=== PATIENT | female | born 1935 | race Caucasian/White ===

== ENCOUNTER → 2018-03-30 | Outpatient (CLI) | payer MEDICARE, OTHER ==
[~2018-03-30] MED LIST: BENTYL10 MG PO; BIOTIN1 MG PO; CLARITIN-D 241 EACH PO; GABAPENTIN100 MG PO; LEVOTHYROXINE50 MCG PO; METOPROLOL TART50 MG PO; NASOCORT; PROBIOTIC & AC1 EACH PO; SIMVASTATIN40 MG PO; SINGULAR; SYMBICORT; Z.0.AMLODIPINE BESYL PO; Z.0.HYZAAR 100-251 E PO; Z.0.METOPROLOL SUC10 PO; Z.0.PROTONIX20 MG PO; Z.0.TRICOR145 MG PO
--- NOTE | 2018-03-30 18:59 | Diagnostic Imaging Report ---
PROCEDURE: CT CHEST WITHOUT CONTRAST CT scan of the chest WITHOUT intravenous contrast, using standard protocol. TECHNIQUE: The chest was scanned utilizing a multidetector helical scanner from the apex to the level of the adrenal glands. No IV contrast was administered per physician's request. Coronal and sagittal multiplanar reformations were obtained. COMPARISON: Patients [facility], CT, CT CHEST , 08/15/2017, 12:42. INDICATIONS: SHORTNESS OF BREATH FINDINGS: Lines/tubes: None. Lungs and Airways: Stable mild subpleural reticulation and linear scarring in the lateral right middle lobe, lateral, right lower lobe and lingula. Stable linear opacities in the lingula and anterior left lower lobe extending to the pleural surface (series 3, image 73 and 65), consistent with scarring. No pulmonary nodules, masses, or consolidation. Airways are clear, without endobronchial lesions. Pleura: No effusion, or pneumothorax. Heart and mediastinum: Stable 1.0 cm hypodense lesion in the left thyroid lobe (series 2 image 14). Heart size is normal. No pericardial effusion. Atherosclerotic calcification of the aortic valve, coronary arteries, thoracic aorta and mitral annulus. Aorta is non-aneurysmal. The main pulmonary artery is normal in caliber, measuring 2.9 cm. Lymph nodes: Slight interval increase in size in mildly enlarged right lower paratracheal lymph node (series 2, image 39), which measures 1.4 cm in short axis and contains a normal fatty hilum. Stable calcified right lower paratracheal and subcarinal lymph nodes (series 2, images 36 and 47). No other mediastinal or any hilar or axillary adenopathy.. Abdomen: Limited views of the upper abdomen show no abnormality within the visualized spleen, pancreas, or kidneys. The adrenal glands are normal. 8mm fluid density hypodense lesion in hepatic segment V, consistent with a simple cyst (series 2, image 104). Large hiatal hernia, containing a portion of the stomach fundus. Bones: No aggressive lytic lesions. Multilevel degenerative disc changes in the thoracic spine. Old compression deformity of T8, which is stable. Generalized osteopenia. Midline sternotomy wires. Soft tissues are grossly unremarkable. IMPRESSION: 1. stable findings in bilateral lower lobes, consistent with mild subpleural fibrotic changes. 2. Stable linear scarring in the lingula and anterior right lower lobe. No consolidation, masses, or pulmonary nodules. 3. Stable 1.0 cm nodule in the left thyroid lobe. This may be further evaluated with dedicated thyroid ultrasound. 4. Slight interval increase in size of mildly enlarged right lower paratracheal lymph node, which is likely reactive, given the normal fatty hilum and lack of other adenopathy. Calcified mediastinal nodes are again seen, consistent with prior granulomatous disease. 7. Large hiatal hernia. Yousif Hernandez M.D. Dictated by: Yousif Hernandez M.D. on 03/30/2018 at 19:01 Electronically approved by: Yousif Hernandez M.D. on 03/30/2018 at 19:01
== END ==
LOC: CT 08:33
PROVIDERS: ATTEND Internal Medicine Pulmonary Disease
DX: R06.09 Other forms of dyspnea (principal)
CPT/HCPCS: 71250

== ENCOUNTER → 2018-04-06 | Outpatient (CLI) | payer MEDICARE, OTHER ==
[~2018-04-06] MED LIST changes: +ALBUTEROL/IPRATROPIUM 3 ML NEB ONE
--- NOTE | 2018-04-07 17:39 | Pulmonary Function Test ---
DATE OF STUDY: April 06, 2018 PATIENT OF: 1. Dr. Robertson. 2. Dr. Amanda. SPIROMETRY: Forced vital capacity 1.97 liters, 97% of predicted. FEV1 of 1.18 liters, 81% of predicted. FEV1-FVC ratio 61%. [id number] of 58% suggesting mild obstructive pulmonary disease. There is no significant improvement following inhalation of bronchodilators. Diffusion capacity is reduced at 7.35 suggesting loss of alveolar units or ventilation perfusion imbalance. Total lung capacity is preserved at 4.36, 107% of predicted. Findings consistent with mild obstructive pulmonary disease. Job#: [id number] PINEDA
== END ==
LOC: RESP 14:57
PROVIDERS: ATTEND Internal Medicine Pulmonary Disease
DX: R06.09 Other forms of dyspnea (principal); R06.02 Shortness of breath

== ENCOUNTER 2018-07-31 12:37 | Emergency (ER) | payer MEDICARE, OTHER ==
[~2018-07-31] VITALS: Ht 157.5 cm; Wt 76.7 kg
[~2018-07-31 12:37] MED LIST changes: -ALBUTEROL/IPRATROPIUM 3 ML NEB ONE
[2018-07-31 13:33] LABS: BASOPHILS % 0.7 % (0.0-1.0); EOSINOPHILS # (AUTO) 0.1 (0.0-0.4); EOSINOPHILS % 1.6 % (0.0-6.0); HEMATOCRIT 41.8 % (34.2-44.1); HEMOGLOBIN 14.1 g/dL (12.0-16.0); LYMPHOCYTES # (AUTO) 0.9 (1.0-3.2); LYMPHOCYTES % 19.8 % (18.0-39.1); MEAN CORPUSCULAR HEMOGLOBIN 31.1 pg (28-32); MEAN CORPUSCULAR HGB CONC 33.7 g/dL (31-35); MEAN CORPUSCULAR VOLUME 92.3 fL (81-99); MONOCYTES % 23.5 % (4.4-11.3); NEUTROPHILS # (AUTO) 2.3 (2.1-6.9); NEUTROPHILS % 54.2 % (38.7-80.0); PLATELET COUNT 346 x10e3/uL (140-360); RED BLOOD COUNT 4.53 x10e6/uL (3.6-5.1); RED CELL DISTRIBUTION WIDTH 13.6 % (11.7-14.4)
[2018-07-31 13:38] LABS: INR 1.09; PARTIAL THROMBOPLASTIN TIME 24.6 seconds (23.8-35.5); PROTHROMBIN TIME 13.3 seconds (11.9-14.5)
[2018-07-31 13:46] LABS: ALBUMIN/GLOBULIN RATIO 1.2 (0.8-2.0); ANION GAP 17.9 mmol/L (8-16); CALCIUM 9.7 mg/dL (8.4-10.2); CREATININE, SERUM 0.94 mg/dL (0.57-1.11); MAGNESIUM 1.6 MG/DL (1.3-2.1); POTASSIUM 3.9 mmol/L (3.5-5.1)
[2018-07-31 13:53] LABS: CREATINE KINASE MB 0.3 ng/mL (0-5.0)
--- NOTE | 2018-07-31 14:37 | Diagnostic Imaging Report ---
A single frontal view of the chest. HISTORY: Weak, rectal bleeding, history of GI bleed COMPARISON: Images from CT of the chest dated March 30, 2018. DISCUSSION: Portable technique, limits sensitivity of the exam. Soft tissue attenuation partially limits sensitivity of the exam. Tubes/Lines: Overlying monitoring leads. Lungs and pleura: Hyperinflated mid to upper lungs, results in bibasilar vascular crowding. No evidence of a consolidative pneumonia or pulmonary alveolar edema. No definite pleural effusion or pneumothorax is identified. Heart and mediastinum: The cardiomediastinal silhouette appears unremarkable. Tortuosity of the thoracic aorta. Bones: Multiple median sternotomy wires. IMPRESSION: 1. Hyperinflated lungs, compatible with obstructive lung disease. 2. No consolidative pneumonia or pulmonary edema. Signed by: Dr. Jose J Cifuentes D.O., M.M.M. on 07/31/2018 2:33 PM
[2018-07-31 15:43] LABS: BILIRUBIN,URINE NEGATIVE (NEGATIVE); CLARITY,URINE CLEAR (CLEAR); COLOR,URINE YELLOW (YELLOW); KETONES,URINE NEGATIVE (NEGATIVE); LEUKOCYTE ESTERASE ,URINE NEGATIVE (NEGATIVE); NITRITE,URINE NEGATIVE (NEGATIVE); PROTEIN,URINE DIPSTICK NEGATIVE (NEGATIVE); URINE UROBILINOGEN 0.2 mg/dL (0.2 - 1)
[2018-07-31 15:49] LABS: EPITHELIAL CELLS,URINE RARE /LPF
== END 2018-07-31 18:25 | disposition home or self-care (01) ==
LOC: ER 12:37
DX: R53.1 Weakness (principal); R11.2 Nausea with vomiting, unspecified; R19.7 Diarrhea, unspecified
CPT/HCPCS: 36415; 71045; 80053; 81001; 82150; 82550; 82553; 83690; 83735; 83880; 84484; 85025; 85610; 85730; 99284

== ENCOUNTER → 2019-01-29 | Outpatient (CLI) | payer MEDICARE, OTHER ==
--- NOTE | 2019-01-29 17:14 | Diagnostic Imaging Report ---
Frontal and lateral views of the chest. HISTORY: Dyspnea on exertion COMPARISON: Chest radiograph July 31, 2018. DISCUSSION: Soft tissue attenuation partially limits sensitivity of the exam. Lungs: Mild bibasilar atelectasis, left greater than right. No evidence of a consolidative pneumonia or pulmonary alveolar edema. Pleura: Trace pleural effusions versus pleural thickening. Heart and mediastinum: The cardiomediastinal silhouette appears unremarkable. Atherosclerotic vascular calcifications at the aortic arch. Bones and soft tissues: Multiple median sternotomy wires. IMPRESSION: 1. Mild bilateral atelectasis, left greater than right. 2. Trace bilateral pleural effusions versus pleural thickening. 3. No consolidative pneumonia or pulmonary alveolar edema. Signed by: Dr. Jose J Cifuentes D.O., M.M.M. on 01/29/2019 5:11 PM
== END ==
LOC: RAD 16:19
PROVIDERS: ATTEND Internal Medicine Pulmonary Disease
DX: R06.00 Dyspnea, unspecified (principal)
CPT/HCPCS: 71046

== ENCOUNTER → 2019-10-09 | Outpatient (CLI) | payer MEDICARE, OTHER ==
--- NOTE | 2019-10-09 16:52 | Diagnostic Imaging Report ---
Left shoulder ultrasound. History: Left shoulder pain and limited range of motion. Comparison: None available. Discussion: Transverse and longitudinal sonographic images of the left shoulder were obtained. Comparison views of the right are also obtained. The left rotator cuff is not clearly visualized, asymmetric compared to the right side in which it is visualized. IMPRESSION: Poorly visualized left rotator cuff compared to the right, concerning for rotator cuff tear. Recommend cross sectional imaging. Signed by: Suman Menendez on 10/09/2019 4:49 PM
== END ==
LOC: US 14:58
PROVIDERS: ATTEND Specialist
DX: M75.122 Complete rotator cuff tear or rupture of left shoulder, not specified as traumatic (principal)
CPT/HCPCS: 76882

== ENCOUNTER → 2020-03-31 | Outpatient (CLI) | payer MEDICARE, OTHER ==
--- NOTE | 2020-03-31 16:01 | Diagnostic Imaging Report ---
TECHNIQUE: Frontal and lateral views of the chest. INDICATION: ^[id number] ^[id number] ^SHORTNESS OF BREATH COMPARISON: 01/29/2019 IMPRESSION: Lines and hardware: Stable. Heart and mediastinum: Stable. Lungs and pleura: Retrocardiac opacity corresponds to the large hiatal hernia identified on prior CT. Left basilar atelectasis. Small bilateral pleural effusions. No pneumothorax. Soft tissues and bones: No acute bony abnormality. Signed by: Wayne Boston MD on 03/31/2020 3:57 PM
== END ==
LOC: RAD 15:20
PROVIDERS: ATTEND Internal Medicine Pulmonary Disease
DX: R06.02 Shortness of breath (principal); I25.10 Atherosclerotic heart disease of native coronary artery without angina pectoris
CPT/HCPCS: 71046

== ENCOUNTER → 2020-04-20 | Outpatient (CLI) | payer MEDICARE, OTHER ==
--- NOTE | 2020-04-20 12:47 | Diagnostic Imaging Report ---
CT of the chest, without contrast. History: COPD. Comparison: No prior CT examinations. Chest radiograph from 03/31/2020. Technique: Multidetector CT scanning of the chest was performed from the level of the apices to the upper abdomen without contrast. Coronal and sagittal multiplanar reformations were obtained. RADIATION DOSE: Total DLP: 574.77 mGy*cm Dose modulation, iterative reconstruction, and/or weight based adjustment of the mA/kV was utilized to reduce the radiation dose to as low as reasonably achievable. FINDINGS: The thyroid and remaining visualized structures within the base of the neck demonstrate no significant abnormalities. The thoracic aorta is normal in course and caliber with extensive atherosclerotic calcification within its course and branch vessels. There are postsurgical changes from prior median sternotomy and suspected CABG. There is calcification of the aortic and mitral valves. The heart is not enlarged. No abnormal pericardial fluid is present. Calcified mediastinal lymph nodes are noted, suggestive of prior granulomatous disease. There is no abnormal axillary, mediastinal, or hilar lymph node enlargement. There is a large hiatal hernia with herniation of a significant portion of the stomach into the thorax. There is a 1.2 x 1.1 x 1.3 cm exophytic hyperdensity identified arising off the superior pole of the right kidney. A subcentimeter hypodensities identified within the right hepatic lobe which is too small to definitively characterize. Prominent atherosclerotic calcifications noted within the visualized abdominal aorta and branch vessels. The remaining visualized upper abdominal contents demonstrate no significant abnormalities. The trachea and proximal airways are patent. Examination of the lungs demonstrates fibrotic changes/scarring with areas of architectural distortion with a peripheral/basilar predominance. There is no evidence for consolidation, pneumothorax, mass, suspicious nodule, or pleural effusion. There is a chronic compression deformity of the T7 vertebral which was present on prior chest radiographs. The remaining osseous structures demonstrate degenerative changes without evidence for acute fracture or destructive process. The extrathoracic soft tissues are unremarkable. IMPRESSION: 1. Chronic fibrotic changes of the lungs as detailed above. No evidence for focal consolidation, pneumothorax, mass/suspicious nodule, or pleural effusion. 2. Large hiatal hernia. 3. 1.3 cm exophytic hyperdensity identified arising off the superior pole of the right kidney. This may represent a hyperdense cyst but is incompletely characterized on this examination. Recommend evaluation with renal ultrasound examination to confirm cystic nature. Signed by: Dr. Vernon Dodd MD on 04/20/2020 12:43 PM
== END ==
LOC: CT 11:40
PROVIDERS: ATTEND Internal Medicine Pulmonary Disease
DX: J44.9 Chronic obstructive pulmonary disease, unspecified (principal)
CPT/HCPCS: 71250

== ENCOUNTER → 2020-07-29 | Outpatient (CLI) | payer MEDICARE, OTHER ==
[~2020-07-29] MED LIST changes: +ALLEGRA ALLERG180 MG PO; +BENICAR20 MG PO; +BIOTIN2500 MCG PO; +CARAFATE1 GM; +CLONIDINE HCL0.1 MG PO; +MULTI-VITAMIN1 EACH; +PANTOPRAZOLE SO40 MG PO; +VITAMIN B-121000 MC4 PO; +VITAMIN D3 COM1 EACH PO; +XYZAL5 MG PO
[2020-07-29 18:16] LABS: ABG HCO3 18 mmol/L (22-26); ABG PCO2 25 mmHg (35-45); ABG PH 7.48 (7.35-7.45); ABG PO2 60 mmHg (80-105); ABG TCO2 19
--- NOTE | 2020-07-29 18:53 | Diagnostic Imaging Report ---
EXAMINATION: PA and lateral views of the chest. COMPARISON: CT chest 04/20/2020 CLINICAL HISTORY: Shortness of breath DISCUSSION: Lines/tubes: None. Lungs: Ill-defined 3.0 x 2.7 cm rounded nodular density in the right upper lobe, which was not seen on prior CT chest. Stable bilateral lower lobe and lingular linear opacities, likely reflecting scarring and coarsening of the interstitium predominantly in the right middle lobe consistent with mild fibrotic changes. Stable rounded convexity projecting in the retrocardiac region, consistent with previously visualized moderate to large hiatal hernia. Pleura: There is no pleural effusion or pneumothorax. Heart and mediastinum: Cardiac silhouette is unremarkable. Pulmonary vasculature is normal. Bones and soft tissues: No acute bony abnormalities. Generalized osteopenia. Stable anterior wedge compression fracture of the T7 vertebral body. Stable degenerative changes in the thoracic spine. Midline sternotomy wires. IMPRESSION: New ill-defined 3.0 x 2.7 cm rounded nodular density in the right upper lobe, which is indeterminate. This may reflect focal infection. Neoplasm is less likely given the short time interval. Recommend contrast enhanced chest CT for further evaluation. Signed by: Dr. Yousif Hernandez M.D. on 07/29/2020 6:50 PM
--- NOTE | 2020-07-31 00:13 | Pulmonary Function Test ---
DATE OF STUDY: REFERRING PHYSICIAN: Patient of . Spirometry suggests mild obstructive pulmonary disease. Forced vital capacity 1.93 L, 116% of predicted. FEV1 1.29 L, 100% of predicted. FEV1-FVC ratio is 67%. FEF 25/75/65/0.33%. There is no significant improvement following inhalation of bronchodilators. Diffusion capacity is markedly reduced 5.13, 31% of predicted, suggesting loss of alveolar units or ventilation perfusion imbalance. Arterial blood gases reveal hypoxia with increased A-a gradient, respiratory alkalosis, pH 7.478, pCO2 25, paO2 60. Respiratory alkalosis, increased A-a gradient. Moderate hypoxia. Loyd Leon MD DS/MODL /[id number]
== END ==
LOC: RESP 15:54
PROVIDERS: ATTEND Internal Medicine Pulmonary Disease
DX: J84.10 Pulmonary fibrosis, unspecified (principal)
CPT/HCPCS: 36415; 36600; 71046; 82805; 94060; 94664; 94727; 94729

== ENCOUNTER 2020-07-30 12:51 | Inpatient (IN) | payer MEDICARE, OTHER ==
[~2020-07-30] VITALS: Ht 157.5 cm; Wt 76.7 kg
[~2020-07-30 12:51] MED LIST changes: -ALLEGRA ALLERG180 MG PO; -BENICAR20 MG PO; -BIOTIN2500 MCG PO; -CARAFATE1 GM; -CLONIDINE HCL0.1 MG PO; -MULTI-VITAMIN1 EACH; -PANTOPRAZOLE SO40 MG PO; -VITAMIN B-121000 MC4 PO; -VITAMIN D3 COM1 EACH PO; -XYZAL5 MG PO
--- NOTE | 2020-07-30 13:53 | Diagnostic Imaging Report ---
EXAMINATION: CHEST SINGLE (PORTABLE) INDICATION: Respiratory distress COMPARISON: Chest radiograph 07/29/2020, chest CT 04/20/2020 FINDINGS: LINES/TUBES:EKG leads overlie the chest. LUNGS:Apparent interval decrease in size of right upper lung nodular opacity which measures 2.3 cm today compared to 3.0 cm previously (today's measurement). Left basilar subsegmental atelectasis. No new focal consolidation. PLEURA:No pleural effusion or pneumothorax. MEDIASTINUM:The cardiomediastinal silhouette appears unchanged in size and shape. Atherosclerotic calcifications of the thoracic aorta. BONES/SOFT TISSUES:No acute osseous injury. Sternotomy wires in place. ABDOMEN:No free air under the diaphragm. IMPRESSION: Interval decrease in size of right upper lobe nodular opacity from 3.0 cm to 2.3 cm, likely reflecting an underlying infectious process. Left basilar subsegmental atelectasis. No new focal consolidation. Signed by: Clark Engle MD on 07/30/2020 1:50 PM
[2020-07-30 14:00] LABS: BASOPHILS # (AUTO) 0.1 (0.0-0.1); BASOPHILS % 0.6 % (0.0-1.0); EOSINOPHILS # (AUTO) 0.1 (0.0-0.4); HEMATOCRIT 41.7 % (34.2-44.1); HEMOGLOBIN 13.4 g/dL (12.0-16.0); LYMPHOCYTES # (AUTO) 0.9 (1.0-3.2); LYMPHOCYTES % 7.5 % (18.0-39.1); MEAN CORPUSCULAR HEMOGLOBIN 30.2 pg (28-32); MEAN CORPUSCULAR HGB CONC 32.1 g/dL (31-35); MEAN CORPUSCULAR VOLUME 94.1 fL (81-99); MONOCYTES # (AUTO) 1.5 (0.2-0.8); MONOCYTES % 12.8 % (4.4-11.3); NEUTROPHILS # (AUTO) 8.9 (2.1-6.9); NEUTROPHILS % 76.5 % (38.7-80.0); PLATELET COUNT 396 x10e3/uL (140-360); RED BLOOD COUNT 4.43 x10e6/uL (3.6-5.1); RED CELL DISTRIBUTION WIDTH 15.8 % (11.7-14.4)
[2020-07-30 14:20] LABS: ALBUMIN 3.8 g/dL (3.5-5.0); ALBUMIN/GLOBULIN RATIO 1.1 (0.8-2.0); ANION GAP 22.2 mmol/L (8-16); CALCIUM 9.5 mg/dL (8.4-10.2); CREATININE, SERUM 1.33 mg/dL (0.57-1.11)
[2020-07-30 14:23] LABS: POTASSIUM 5.2 mmol/L (3.5-5.1)
[2020-07-30 14:26] LABS: CREATINE KINASE MB 2.5 ng/mL (0-5.0)
[2020-07-30] MEDS ORDERED: SODIUM CHLORIDE 0.9% 1000ML 1,000 ML ONE (14:50)
[2020-07-30] MEDS: SODIUM CHLORIDE 0.9% 1000ML 1,000 ML IV SCH (15:03)
[2020-07-30 15:20] LABS: BILIRUBIN,URINE NEGATIVE (NEGATIVE); CLARITY,URINE SL CLOUDY (CLEAR); COLOR,URINE YELLOW (YELLOW); KETONES,URINE NEGATIVE (NEGATIVE); LEUKOCYTE ESTERASE ,URINE NEGATIVE (NEGATIVE); NITRITE,URINE NEGATIVE (NEGATIVE); PROTEIN,URINE DIPSTICK NEGATIVE (NEGATIVE); URINE UROBILINOGEN 0.2 mg/dL (0.2 - 1)
--- NOTE | 2020-07-30 15:27 | Emergency Department Note ---
History of Present Illnes History of Present Illness Chief Complaint: Respiratory History of Present Illness This is a 84 year old female arrived to the ED with complaints shortness of breath for 2 weeks and the need for additional support with oxygen. Patient denies cough or fever. 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 Chief Complaint Comment PATIENT IN FROM HOME WITH COMPLAINTS OF INCREASED SHORTNESS OF BREATH OVER THE LAST 2 WEEKS; PATIENT WITH A HISTORY OF PULMONARY F IBROSIS AND STATES THAT SHE JUST GOT HER O2 TODAY. O2 SATS 93% ON ROOM AIR Historian: Patient, Family Member Arrival Mode: Car Duration (how long): day(s) Timing of current episode: constant Progression: worsening Chronicity: chronic Past Medical/Family History Physician Review I have reviewed the patient's past medical and family history. Any updates have been documented here. 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 Past Surgical History: Hysterectomy, CABG Social History Smoking Cessation: Never Smoker Counseling Performed: No Alcohol Use: None Any Illegal Drug Use: No Other Last Tetanus: UTD Any Pre-Existing Lines (PICC,: No Review of Systems Review of Systems Constitutional: Reports no symptoms EENTM: Reports no symptoms Cardiovascular: Reports no symptoms Respiratory: Reports as per HPI, Reports dyspnea, Reports dyspnea on exertion Gastrointestinal: Reports no symptoms Genitourinary: Reports no symptoms Musculoskeletal: Reports no symptoms Integumentary: Reports no symptoms Neurological: Reports no symptoms Psychological: Reports no symptoms Endocrine: Reports no symptoms Hematological/Lymphatic: Reports no symptoms Physical Exam Related Data Allergies: Coded Allergies: Cephalexin Monohydrate (Verified Allergy, Mild, RASH, REDNESS, FEVER, 07/31/18) amoxicillin (Verified Allergy, Mild, 07/31/18) clavulanic acid (Verified Allergy, Mild, 07/31/18) levofloxacin (Verified Allergy, Mild, TENDONITIS, 07/31/18) sulfamethoxazole (Verified Allergy, Mild, RASH, REDNESS, FEVER, 07/31/18) trimethoprim (Verified Allergy, Mild, RASH, REDNESS, FEVER, 07/31/18) Triage Vital Signs Vital Signs Date Time Temp Pulse Resp B/P (MAP) Pulse Ox O2 Delivery O2 Flow Rate FiO2 07/30/20 13:01 97.8 88 26 128/102 93 Nasal Cannula 5.0 Vital signs reviewed: Yes Physical Exam CONSTITUTIONAL Constitutional: Present well-developed, Present well-nourished, Present distre ssed, Present ill appearing HENT HENT: Present normocephalic, Present atraumatic, Present oropharynx clear/moist, Present nose normal HENT L/R: Present left ext ear normal, Present right ext ear normal EYES Eyes: Reports PERRL, Reports conjunctivae normal NECK Neck: Present ROM normal PULMONARY Pulmonary: Present effort normal, Present respiratory distress CARDIOVASCULAR Cardiovascular: Present regular rhythm, Present heart sounds normal, Present capillary refill normal, Present normal rate GASTROINTESTINAL Abdominal: Present soft, Present nontender, Present bowel sounds normal GENITOURINARY Genitourinary: Present exam deferred SKIN Skin: Present warm, Present dry MUSCULOSKELETAL Musculoskeletal: Present ROM normal NEUROLOGICAL Neurological: Present alert, Present oriented x 3, Present no gross motor or sensory deficits PSYCHOLOGICAL Psychological: Present mood/affect normal, Present judgement normal Results Laboratory Result Diagram: 07/30/20 1345 07/30/20 1345 Laboratory Laboratory Tests Test 07/30/20 14:57 07/30/20 13:45 07/30/20 13:38 Urine Color Yellow (YELLOW) Urine Clarity Sl cloudy (CLEAR) Urine pH 5 (5 - 7) Urine Specific [place] 1.020 (1.010-1.025) Urine Protein Negative (NEGATIVE) Urine Glucose (UA) Negative (NEGATIVE) Urine Ketones Negative (NEGATIVE) Urine Blood Negative (NEGATIVE) Urine Nitrite Negative (NEGATIVE) Urine Bilirubin Negative (NEGATIVE) Urine Urobilinogen 0.2 mg/dL (0.2 - 1) Urine Leukocyte Esterase Negative (NEGATIVE) White Blood Count 11.67 x10e3/uL (4.8-10.8) Red Blood Count 4.43 x10e6/uL (3.6-5.1) Hemoglobin 13.4 g/dL (12.0-16.0) Hematocrit 41.7 % (34.2-44.1) Mean Corpuscular Volume 94.1 fL (81-99) Mean Corpuscular Hemoglobin 30.2 pg (28-32) Mean Corpuscular Hemoglobin Concent 32.1 g/dL (31-35) Red Cell Distribution Width 15.8 % (11.7-14.4) Platelet Count 396 x10e3/uL (140-360) Neutrophils (%) (Auto) 76.5 % (38.7-80.0) Lymphocytes (%) (Auto) 7.5 % (18.0-39.1) Monocytes (%) (Auto) 12.8 % (4.4-11.3) Eosinophils (%) (Auto) 1.0 % (0.0-6.0) Basophils (%) (Auto) 0.6 % (0.0-1.0) Neutrophils # (Auto) 8.9 (2.1-6.9) Lymphocytes # (Auto) 0.9 (1.0-3.2) Monocytes # (Auto) 1.5 (0.2-0.8) Eosinophils # (Auto) 0.1 (0.0-0.4) Basophils # (Auto) 0.1 (0.0-0.1) Absolute Immature Granulocyte (auto 0.19 x10e3/uL (0-0.1) Sodium Level 144 mmol/L (136-145) Potassium Level 5.2 mmol/L (3.5-5.1) Chloride Level 110 mmol/L (98-107) Carbon Dioxide Level 17 mmol/L (22-29) Anion Gap 22.2 mmol/L (8-16) Blood Urea Nitrogen 35 mg/dL (7-26) Creatinine 1.33 mg/dL (0.57-1.11) Estimat Glomerular Filtration Rate 38 ML/MIN (60-) BUN/Creatinine Ratio 26 (6-25) Glucose Level 148 mg/dL (74-118) Calcium Level 9.5 mg/dL (8.4-10.2) Total Bilirubin 0.7 mg/dL (0.2-1.2) Aspartate Amino Transf (AST/SGOT) 35 IU/L (5-34) Alanine Aminotransferase (ALT/SGPT) 21 IU/L (0-55) Alkaline Phosphatase 52 IU/L (40-150) Creatine Kinase 31 IU/L (29-168) Creatine Kinase MB 2.50 ng/mL (0-5.0) Troponin I 0.037 ng/mL (0-0.300) B-Type Natriuretic Peptide 694.2 pg/mL (0-100) Total Protein 7.2 g/dL (6.5-8.1) Albumin 3.8 g/dL (3.5-5.0) Globulin 3.4 g/dL (2.3-3.5) Albumin/Globulin Ratio 1.1 (0.8-2.0) Assessment & Plan Medical Decision Making MDM 84-year-old female arrives to the ED with shortness of breath, known history of pulmonary fibrosis now requiring more oxygen. Potassium mildly elevated, albuterol being given thus will not treat further. Mild BNP elevation noted, Lasix given. Assessment & Plan Final Impression: (1) Acute respiratory disease Depart Disposition: ADMITTED Last Vital Signs Date Time Temp Pulse Resp B/P (MAP) Pulse Ox O2 Delivery O2 Flow Rate FiO2 07/30/20 15:07 95 24 115/65 93 Nasal Cannula 5.0 07/30/20 13:01 97.8 Home Meds Reported Medications Levothyroxine Sodium (LEVOTHYROXINE SODIUM) 50 Mcg Tablet, 50 MCG PO DAILY, #30 TAB 04/07/17 Loratadine/Pseudoephedrine (CLARITIN-D 24 HOUR TABLET) 1 Each Tab.er.24h, 1 EACH PO DAILY, #30 TAB 03/01/17 Simvastatin (SIMVASTATIN) 40 Mg Tablet, 40 MG PO 2100, #30 TAB 03/01/17 Metoprolol Tartrate (METOPROLOL TARTRATE) 50 Mg Tablet, 50 MG PO TID, TAB 03/01/17 [Symbicort] No Conflict Check, PRN 04/16/12 [Singular] No Conflict Check, 10 MG DAILY 04/16/12 Fenofibrate Nanocrystallized (Tricor) 145 Mg Tablet, 145 MG PO DAILY 04/16/12 Amlodipine Besylate (Amlodipine Besylate) 5 Mg Tablet, 5 MG PO DAILY 04/16/12 Medications in the ED Sodium Chloride 1,000 ml @ ud STK-MED ONCE .ROUTE ; Start 07/30/20 at 14:50; Stop 07/30/20 at 14:43; Status DC Sodium Chloride 1,000 ml @ 100 mls/hr Q10H IV Last administered on 07/30/20at 15:03; Admin Dose 100 MLS/HR; Start 07/30/20 at 15:15; Stop 08/29/20 at 15:14 WOOD DEAL DO Jul 30, 2020 15:27
[2020-07-30 15:32] LABS: AMORPHOUS SEDIMENT,URINE MODERATE (FEW); BACTERIA,URINE FEW /HPF; EPITHELIAL CELLS,URINE RARE /LPF
[2020-07-30 15:55] LABS: INR 1.02; PROTHROMBIN TIME 13.9 seconds (11.9-14.5)
[2020-07-30] MEDS ORDERED: PANTOPRAZOLE SOD 40 MG TABEC PO ONE (16:00)
[2020-07-30] MEDS: DOXYCYCLINE HYCLATE TABLET 100 MG TAB PO SCH ×3 (16:18→21:33)
--- NOTE | 2020-07-30 18:01 | Consultation ---
DATE OF CONSULTATION: Pulmonary Consultation The patient of Dr. Al Cerda , Dr. Kaur, Dr. Amanda. 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 She was seen in the office yesterday, declining admission. Her O2 saturation on exertion was 88%. She had taken one dose of Lasix this morning at my request. Pulmonary functions revealed a severe reduction in diffusion capacity and mild obstructive disease on spirometry. She has a hiatal hernia and gastroesophageal reflux. She has been fatigued lately and tachypneic, could not go to the car this morning to go to her doctor's visit with Dr. Amanda. She has had bypass surgery in 2016. She has had hysterectomy, skin cancers removed. ALLERGIES: SHE IS ALLERGIC TO BACTRIM, KEFLEX AND LEVAQUIN. She has had C diff colitis in the past. CURRENT MEDICATIONS: Included Mucomyst, Norvasc, Levoxyl, metoprolol, Protonix, Zocor, trilogy and Tricor. SOCIAL HISTORY: She is an ex-smoker, smoked for 25 years. FAMILY HISTORY: Positive for longevity and leukemia. PHYSICAL EXAMINATION: GENERAL: This is a well-developed white female, somewhat anxious and tachypneic, but no acute distress. HEAD: Normocephalic, atraumatic. EYES: Extraocular movements are intact. HEART: Systolic murmur. LUNGS: Few rales at the bases. There seems to be improvement. ABDOMEN: Nontender. EXTREMITIES: Nonedematous. PLAN: For CT angiogram with contrast, possible biopsy of the right upper lobe lesion if documented on CT. Empiric antibiotics. Her white count is elevated at 11.67, platelets 296. Continue bronchodilators. Trial of doxycycline. Continue Protonix. Case discussed with _Dr Kaur v/q and ct w/o contrast if renal function is poor Thank you for this kind referral. MD ROXANA Solorio/SILVIAL /[id number] IRIS
[2020-07-30] MEDS: ALBUTEROL/IPRATROPIUM 3 ML NEB NEB SCH (19:38)
[2020-07-30 20:25] LABS: ANION GAP 17.6 mmol/L (8-16); CALCIUM 8.7 mg/dL (8.4-10.2); CREATININE, SERUM 1.22 mg/dL (0.57-1.11); POTASSIUM 3.6 mmol/L (3.5-5.1)
[2020-07-30 20:47] VITALS: BP 141/74
[2020-07-30] MEDS ORDERED: HEPARIN SOD (PORCINE) 5,000 UNIT/ML VIAL SC SCH (21:00)
[2020-07-30] MEDS ORDERED: SIMVASTATIN 40 MG TAB PO SCH (21:00)
[2020-07-30 21:06] VITALS: BP 141/74
--- NOTE | 2020-07-30 21:15 | NUR ---
Received pt from ER via stretcher. Pt alert, awake, and oriented x 3. Breathing labored and pt gets SOB with speech. Pt arrived to room on 5 L of oxygen via nasal cannula. Pt denies any pain or discomfort. Pt states she has been SOB for several weeks, but her SOB has increased over the past 3 days. No needs at this time. Will administer scheduled medications as ordered.
[2020-07-30] MEDS: METOPROLOL TARTRATE 50 MG TAB PO SCH (21:31)
--- NOTE | 2020-07-30 21:43 | NUR ---
spoke to radiologist regarding ct results. primary nurse made aware.
[2020-07-30] MEDS ORDERED: HEPARIN 25,000 UNIT 1,100 UNIT in DEXTROSE 5% 250ML 250 ML IV SCH (21:45)
[2020-07-30] MEDS ORDERED: HEPARIN SOD (PORCINE) 5,000 UNIT/ML VIAL IV ONE (21:45)
--- NOTE | 2020-07-30 22:06 | Diagnostic Imaging Report ---
EXAM: CT Chest WITH contrast 07/30/2020 8:30 PM INDICATION: concerns of TB r/o pe as well COMPARISON: CT dated 04/20/2020. TECHNIQUE: Chest was scanned utilizing a multidetector helical scanner from the lung apex through the level of the adrenal glands with administration of IV contrast. Coronal and sagittal reformations were obtained. Routine protocol was performed. IV CONTRAST: 100 mL of Omnipaque 300 COMPLICATIONS: None RADIATION DOSE: Total DLP: 434.99 mGy*cm Estimated effective dose: (DLP x 0.014 x size factor) mSv CTDIvol has been reviewed. It is below the limits set by the Radiation Protocol Committee (RPC). Dose modulation, iterative reconstruction, and/or weight based adjustment of the mA/kV was utilized to reduce the radiation dose to as low as reasonably achievable. FINDINGS: Large burden pulmonary emboli in the right and left main pulmonary arteries extending into the lobar, segmental, and subsegmental branches bilaterally. Findings compatible with right heart strain including: Right ventricular lumen is larger than the left. There is bowing of the septum into the left ventricle. There is reflux of contrast into the IVC and hepatic veins. LINES/ TUBES: None. LUNGS AND AIRWAYS: Nonspecific 2.1 x 4.0 cm groundglass lesion with peripheral rim of consolidation measuring 4 mm - Atoll sign/reverse halo sign. Scattered patchy areas of groundglass peripherally may represent atelectasis versus small foci of infection/inflammation or developing infarction superimposed on a background of chronic fibrotic changes. PLEURA: The pleural spaces are clear. HEART AND MEDIASTINUM: The heart is enlarged. No pericardial effusion. The thoracic aorta and main pulmonary artery are nonenlarged. Sternotomy wires and CABG changes. UPPER ABDOMEN: No significant abnormality.. BONES: Chronic compression deformity of T7 vertebral body. IMPRESSION: 1. Large bilateral PE burden with pulmonary emboli in the distal main right and left pulmonary arteries extending distally involving essentially every lobe. CT evidence of right heart strain. 2. 2.1 cm lesion demonstrating Atoll sign/ reverse halo which is nonspecific, but probably represents a pulmonary infarction in the setting of large PE burden. However, this lesion can also be seen in the setting of tuberculosis as well as multiple other etiologies. CT followup is recommended in 3 months to reassess. Critical results were discussed with Rocio Day on 07/30/2020 at 9:43 PM Signed by: Esvin Flores MD on 07/30/2020 10:03 PM
--- NOTE | 2020-07-30 22:19 | NUR ---
Received call from radiologist regarding CT chest results. Pt has large bilateral PE. Dr. Grossman informed. New orders received to transfer pt to [facility].
[2020-07-30] MEDS ORDERED: IOPAMIDOL 370 MG/ML 200 ML INFUS..BTL INJ ONE (22:24)
[2020-07-30] MEDS ORDERED: SODIUM CHLORIDE 0.9% 50ML 50 ML ONE (22:24)
--- NOTE | 2020-07-30 23:04 | NUR ---
Pt transferred to [facility] [id number]. Report given to CALLUM Rivero. Pt alert and awake at time of transfer. Care transferred.
[2020-07-30] MEDS ORDERED: HEPARIN 25,000 UNIT DRIP IV ONE ×2 (23:17)
[2020-07-31] VITALS (10 sets, daily range): BP systolic 82–140; BP diastolic 45–90
[2020-07-31] MEDS ORDERED: HEPARIN SOD (PORCINE) 5,000 UNIT/ML VIAL ONE (00:34)
[2020-07-31] MEDS ORDERED: VITAMIN D3 COM1 EACH PO (00:36)
[2020-07-31] MEDS ORDERED: PANTOPRAZOLE SO40 MG PO (00:36)
[2020-07-31] MEDS ORDERED: CARAFATE1 GM (00:36)
[2020-07-31] MEDS ORDERED: XYZAL5 MG PO (00:36)
[2020-07-31] MEDS ORDERED: VITAMIN B-121000 MC4 PO (00:36)
[2020-07-31] MEDS ORDERED: MULTI-VITAMIN1 EACH (00:36)
[2020-07-31] MEDS ORDERED: ALLEGRA ALLERG180 MG PO (00:36)
[2020-07-31] MEDS ORDERED: CLONIDINE HCL0.1 MG PO (00:36)
[2020-07-31] MEDS ORDERED: BIOTIN2500 MCG PO (00:36)
[2020-07-31] MEDS ORDERED: BENICAR20 MG PO (00:36)
[2020-07-31] MEDS: ALBUTEROL/IPRATROPIUM 3 ML NEB NEB SCH ×2 (01:00→07:00)
[2020-07-31] MEDS: SODIUM CHLORIDE 0.9% 1000ML 1,000 ML IV SCH (02:14)
[2020-07-31] MEDS ORDERED: LEVOTHYROXINE SODIUM 50 MCG TAB PO SCH (06:00)
[2020-07-31 06:42] LABS: BASOPHILS # (AUTO) 0.1 (0.0-0.1); BASOPHILS % 0.7 % (0.0-1.0); EOSINOPHILS # (AUTO) 0.1 (0.0-0.4); HEMATOCRIT 38.8 % (34.2-44.1); HEMOGLOBIN 12.3 g/dL (12.0-16.0); LYMPHOCYTES # (AUTO) 1.1 (1.0-3.2); LYMPHOCYTES % 7.7 % (18.0-39.1); MEAN CORPUSCULAR HGB CONC 31.7 g/dL (31-35); MEAN CORPUSCULAR VOLUME 94.6 fL (81-99); MONOCYTES # (AUTO) 1.7 (0.2-0.8); MONOCYTES % 12.1 % (4.4-11.3); NEUTROPHILS # (AUTO) 10.9 (2.1-6.9); NEUTROPHILS % 76.9 % (38.7-80.0); PLATELET COUNT 345 x10e3/uL (140-360); RED CELL DISTRIBUTION WIDTH 15.8 % (11.7-14.4)
[2020-07-31 07:05] LABS: ALBUMIN 3.7 g/dL (3.5-5.0); ALBUMIN/GLOBULIN RATIO 1.3 (0.8-2.0); ANION GAP 19.2 mmol/L (8-16); CALCIUM 9.2 mg/dL (8.4-10.2); CREATININE, SERUM 1.09 mg/dL (0.57-1.11); POTASSIUM 4.2 mmol/L (3.5-5.1)
[2020-07-31] MEDS ORDERED: PANTOPRAZOLE SOD 40 MG TABEC PO SCH (07:30)
[2020-07-31 08:05] LABS: INR 1.07; PROTHROMBIN TIME 14.4 seconds (11.9-14.5)
[2020-07-31] MEDS: DOXYCYCLINE HYCLATE TABLET 100 MG TAB PO SCH (08:39)
[2020-07-31] MEDS: METOPROLOL TARTRATE 50 MG TAB PO SCH (08:53)
[2020-07-31] MEDS ORDERED: MONTELUKAST SODIUM 10 MG TAB PO SCH (09:00)
[2020-07-31] MEDS ORDERED: NON-FORMULARY MEDICATION ([Singular] 10 MG) SCH (09:00)
[2020-07-31] MEDS ORDERED: FENOFIBRATE 145 MG TAB PO SCH (09:00)
[2020-07-31] MEDS ORDERED: AZTREONAM 1 GM/NS 50 ML 50 ML IV SCH (10:00)
--- OUTSIDE RECORDS SUMMARY | 2020-07-31 10:26 | XMS REPORT | Continuity of Care Document ---
Author Author [facility] t Organization [facility] Address [address] [place] [address] Phone Unavailable Care Team Providers Care Pulley Mortiser Operator Name Role Phone SHELBI PRESSLEY MD PCP MAURISIO DALE Attphys Unavailable Etienne PETERSON Attphys Unavailable GUY BENITEZ Attphys Unavailable Karmen STEELE Attphys Unavailable MAURISIO DALE Admphys Unavailable Payers Payer Name Policy Type Policy Number Effective Date Expiration Date Catalina Stevens Ppo [id number] 2014 00:00:00 [facility] Medicare A & B [id number] 1999 00:00:00 [facility] Problems Condition Name Condition Details Condition Category Status Onset Date Resolution Date Last Treatment Date Treating Clinician Comments Source Upper gastrointestinal hemorrhage Upper GI bleed Problem Active [facility] Allergies, Adverse Reactions, Alerts Allergy Name Allergy Type Status Severity Reaction(s) Onset Date Inacti ve Date Treating Clinician Comments Source Cephalexin Monohydrate Allergy to Substance Active Mild YADI H, REDNESS, FEVER 2018-07-31 00:00:00 [facility] clavulanic acid Allergy to Substance Active Mild 2018-07-31 00:0 0:00 [facility] Sulfamethoxazole Allergy to Substance Active Mild RASH, RED NESS, FEVER 2018-07-31 00:00:00 [facility] Trimethoprim Allergy to Substance Active Mild RASH, REDNESS , FEVER 2018-07-31 00:00:00 [facility] Amoxicillin Allergy to Substance Active Mild 2018-07-31 00:00:00 [facility] Levofloxacin Allergy to Substance Active Mild TENDONITIS 2018-07-31 00:00:00 [facility] cephalexin DA Active [place] 2015-04-24 00:00:00 [facility] clavulanic acid DA Active [place] 2015-04-24 00:00:00 [facility] sulfamethoxazole DA Active [place] 2015-04-24 00:00:00 [facility] trimethoprim DA Active [place] 2015-04-24 00:00:00 [facility] amoxicillin DA Active [place] 2015-04-24 00:00:00 [facility] levofloxacin DA Active [place] 2015-04-24 00:00:00 [facility] Medications Ordered Medication Name Filled Medication Name Start Date Stop Da te Current Medication? Ordering Clinician Indication Dosage Frequency Signature (SIG) Comments Components Source Amlodipine Besylate 5 Mg Tablet Amlodipine Besylate 5 Mg Tablet Yes 5 Daily [facility] Fenofibrate Nanocrystallized (Tricor) 145 Mg Tablet Fe nofibrate Nanocrystallized (Tricor) 145 Mg Tablet Yes 145 Daily [facility] Levothyroxine Sodium 50 Mcg Tablet Levothyroxine Sodium 50 Mcg Tablet Yes 50 Daily [facility] Loratadine/Pseudoephedrine (Claritin-D 24 Hour Tablet) 1 Each Tab.er.24h Loratadine/Pseudoephedrine (Claritin-D 24 Hour Tablet) 1 Each Tab.er.24h Yes 1 Daily [facility] Metoprolol Tartrate 50 Mg Tablet Metoprolol Tartrate 50 Mg Tablet Yes 50 Three Times A Day [facility] Simvastatin 40 Mg Tablet Simvastatin 40 Mg Tablet Yes 40 Today At 9:00PM [facility] Singular Singular Yes 10 Daily [facility] Symbicort Symbicort Yes As Needed [facility] Pantoprazole Sodium (Protonix) 20 Mg Tablet., 20 Mg Oral Pantoprazole Sodium (Protonix) 20 Mg Tablet., 20 Mg Oral 2017-04-11 00:00:00 No 20 Daily [facility] Biotin 1 Mg Tablet, 1 Mg Oral Biotin 1 Mg Tablet, 1 Mg Oral 2017-04-07 00:00:00 No 1 Daily [facility] Dicyclomine Hcl (Bentyl) 10 Mg Capsule, 10 Mg Oral Dic yclomine Hcl (Bentyl) 10 Mg Capsule, 10 Mg Oral 2017-04-07 00:00:00 No 10 Three Times A Day for Abdominal Pain [facility] Gabapentin 100 Mg Capsule, 100 Mg Oral Gabapentin 100 Mg Capsule , 100 Mg Oral 2017-04-07 00:00:00 No 100 Bedtime [facility] Lactobac Cmb #3/Fos/Pantethine (Probioti c & Acidophilus Cap) 1 Each Capsule, Oral Lactobac Cmb #3/Fos/Pantethine (Probioti c & Acidophilus Cap) 1 Each Capsule, Oral 2017-04-07 00:00:00 No Twice A Day [facility] Losartan/Hydrochlorothiazide (Hyzaar 100-25 Tablet) 1 Each Tablet, 1 Each Oral Losartan/Hydrochlorothiazide (Hyzaar 100-25 Tablet) 1 Each Tablet, 1 Each Oral 2017-04-07 00:00:00 No 1 Daily [facility] Metoprolol Succinate 100 Mg Tab.sr.24h, 100 Mg Oral Me toprolol Succinate 100 Mg Tab.sr.24h, 100 Mg Oral 2017-04-07 00:00:00 No 100 Twice A Day [facility] Nasocort Ameliat , 2017-04-07 00:00:00 No Beatrice ly [facility] Procedures Procedure Date / Time Performed Performing Clinician Sourc e Limited non-vascular ultrasound of extremity 2019-10-09 00:0 0:00 GUY BENITEZ [facility] Encounters Start Date/Time End Date/Time [facility] ID Source 2019-11-28 13:00:00 2019-12-13 23:59:00 Discharged Recurring [facility] [id number] [facility] 2019-10-29 13:09:00 2019-11-12 23:59:00 Discharged Recurring [facility] [id number] [facility] 2019-10-09 14:58:00 2019-10-09 14:58:00 Registered Clinic 3 GUY BENITEZ [facility] [id number] [facility] 2019-01-29 16:19:00 2019-01-29 16:19:00 Registered Clinic 3 VOLODYMYR ABBASI [facility] [id number] [facility] 2018-07-31 12:37:00 2018-07-31 18:25:00 Departed Emergency Room 1 EVANS STEELE [facility] [id number] [facility] 2018-04-06 14:57:00 2018-04-06 14:57:00 Registered Clinic [facility] [id number] [facility] 2018-03-30 08:33:00 2018-03-30 08:33:00 Registered Clinic 3 VOLODYMYR ABBASI [facility] [id number] [facility] Results Test Description Test Time Test Comments Results Result Comments Source CT CHEST W 2020-07-30 21:37:00 [facility] [address] [address] Patient Name: PARESH LINTON MR #: [id number] : 1935 Age/Sex: 84/F Req #: [id number] Adm Physician: MAURISIO DALE MD Ordered by: VOLODYMYR PETERSON MD Report #: [id number] Location: MED/SURG3 Room/Bed: [facility] Procedure: [id number] CT/CT CHEST W Exam Date: 07/30/20 Exam Time: 2029 REPORT STATUS: Signed EXAM: CT Chest WITH contrast 07/30/2020 8:30 PM INDICATION: concerns of TB r/o pe as well COMPARISON: CT dated 04/20/2020. TECHNIQUE: Chest was scanned utilizing a multidetector helical scanner from the lung apex through the level of the adrenal glands with admi nistration of IV contrast. Coronal and sagittal reformations were obtained. Routine protocol was performed. IV CONTRAST: 100 mL of Omnipaque 300 COMPLICATIONS: None RADIATION DOSE: Total DLP: 434.99 mGy*cm Estimated effective dose: (DLP x 0.014 x size factor) mSv CTDIvol has been reviewed. It is below the limits set by the Radiation Protocol Committee (RPC). Dose modulation, iterative reconstruction, and/or weight based adjustment of the mA/kV was utilized to reduce the radiation dose to as low as reasonably achievable. FINDINGS: Large burden pulmonary emboli in the right and left main pulmonary arteries extending into the lobar, segmental, and subsegmental branches bilaterally. Findings compatible with right heart strain including: Right ventricular lumen is larger than the left. There is bowing of the septum into the left ventricle. There is reflux of contrast into the IVC and hepatic veins. LINES/ TUBES: None. LUNGS AND AIRWAYS: Nonspecific 2.1 x 4.0 cm groundglass lesion with peripheral rim of consolidation measuring 4 mm - Atoll sign/reverse halo sign. Scattered patchy areas of groundglass peripherally may represent atelectasis versus small foci of infection/inflammation or developing infarction superimposed on a background of chronic fibrotic changes. PLEURA: The pleural spaces are hyun ar. HEART AND MEDIASTINUM: The heart is enlarged. No pericardial effusion. The thoracic aorta and main pulmonary artery are nonenlarged. Sternotomy wires and CABG changes. UPPER ABDOMEN: No significant abnormality.. BONES: Chronic compression deformity of T7 vertebral body. IMPRESSION: 1. Large bilateral PE burden with pulmonary emboli in the distal main right and left pulmonary arteries extending distally involving essentially every lobe. CT evidence of right heart strain. 2. 2.1 cm lesion demonstrating Atoll sign/ reverse halo which is nonspecific, but probably represents a pulmonary infarction in the setting of large PE burden. However, this lesion can also be seen in the setting of tuberculosis as well as multiple other etiologies. CT followup is recommended in 3 months to reassess. Critical results were discussed with Rocio Day on 07/30/2020 at 9:43 PM Signed by: Maurisio Flores MD on 07/30/2020 10:03 PM Dictated By: MAURISIO FLORES MD 02 Transcribed By: SABRA on 07/30/202202 COPY TO: VOLODYMYR PETERSON MD CHEST SINGLE (PORTABLE) 2020-07-30 13:46:[address] [address] Patient Name: PAERSH LINTON MR #: [id number] : 1935 Age/Sex: 84/F Req #: [id number] Adm Physician: Ordered by: WOOD DEAL DO Report #: [id number] Location: ER Room/Bed: Procedure: [id number] DX/CHEST SINGLE (PORTABLE) Exam Date: 07/30/20 Exam Time: 1332 REPORT STATUS: Signed EXAMINATION: CHEST SINGLE (PORTABLE) INDICATION: Respiratory distress COMPARISON: Chest radiograph 07/29/2020, chest CT 04/20/2020 FINDINGS: LINES/TUBES:EKG leads overlie the chest. LUNGS:Apparent interval decrease in size of right upper lung nodular opacity which measures 2.3 cm today compared to 3.0 cm previously (today's measurement). Left basilar subsegmental atelectasis. No new focal consolidation. PLEURA:No pleural effusion or pneumothorax. MEDIASTINUM:The cardiomediastinal silhouette appears unchanged in size and shape. Atherosclerotic calcifications of the thoracic aorta. BONES/SOFT TISSUES:No acute osseous injury. Sternotomy wires in place. ABDOMEN:No free air under the diaphragm. IMPRESSION: Interval decrease in size of right upper lobe nodular opacity from 3.0 cm to 2.3 cm, likely reflecting an underlying infectious process. Left basilar subsegmental atelectasis. No new focal consolidation. Signed by: Nik Armas MD on 07/30/2020 1:50 PM Dictated By: NIK ARMAS MD 1350 Transcribed By: SABRA on 07/30/20 1350 COPY TO: WOOD DEAL DO CHEST 2 VIEWS 2020-07-29 18:38:00 [address] [address] Patient Name: PARESH LINTON MR #: [id number] : 1935 Age/Sex: 84/F Req #: [id number] Adm Physician: Ordered by: VOLODYMYR PETERSON MD Report #: [id number] Location: [facility] Room/Bed: Procedure: [id number] DX/CHEST 2 VIEWS Exam Date: 07/29/20 Exam Time: 1740 REPORT STATUS: Signed EXAMINATION: PA and lateral views of the chest. COMPARISON: CT chest 04/20/2020 CLINICAL HISTORY: Shortness of breath DISCUSSION: Lines/tubes: None. Lungs: Ill- defined 3.0 x 2.7 cm rounded nodular density in the right upper lobe, which wa s not seen on prior CT chest. Stable bilateral lower lobe and lingular linear opacities, likely reflecting scarring and coarsening of the interstitium predominantly in the right middle lobe consistent with mild fibrotic changes. Stable rounded convexity projecting in the retrocardiac region, consistent with previously visualized moderate to large hiatal hernia. Pleura: There is no pleural effusion or pneumothorax. Heart and mediastinum: Cardiac silhouette is unremarkable. Pulmonary vasculature is normal. Bones and soft tissues: No acute bony abnormalities. Generalized osteopenia. Stable anterior wedge compression fracture of the T7 vertebral body. Stable degenerative changes in the thoracic spine. Midline sternotomy wires. IMPRESSION: New ill-defined 3.0 x 2.7 cm rounded nodular density in the right upper lobe, which is indeterminate. This may reflect focal infection. Neoplasm is less likely given the short time interval. Recommend contrast enhanced chest CT for further evaluation. Signed by: Dr. Yousif Weiner M.D. on 07/29/2020 6:50 PM Dictated By: YOUSIF WEINER MD 49 Transcribed By: SABRA on 07/29/201849 COPY TO: VOLODYMYR PETERSON MD CT CHEST WO 2020-04-20 12:28:00 [address] [place] [address] Patient Name: PARESH LINTON MR #: [id number] : 1935 Age/Sex: 84/F Req #: [id number] Adm Physician: Ordered by: VOLODYMYR PETERSON MD Report #: [id number] Location: CT Room/Bed: Procedure: [id number] CT/CT CHEST WO Exam Date: 04/20/20 Exam Time: 1200 REPORT STATUS: Signed CT of the chest, without contrast. History: COPD. Comparison: No prior CT examinations. Chest radiograph from 03/31/2020. Technique: Multidetector CT scanning of the chest was performed from the level of the apices to the upper abdomen without contrast. Coronal and sagittal multiplanar reformations were obtained. RADIATION DOSE: Total DLP: 574.77 mGy*cm Dose modulation, iterative reconstruction, and/or weight based adjustment of the mA/kV was utilized to reduce the radiation dose to as low as reasonably achievable. FINDINGS: The thyroid and remaining visualized structures within the base of the neck demonstrate no significant abnormalities. The thoracic aorta is normal in course and caliber with extensive atherosclerotic calcification within its course and branch vessels. There are postsurgical changes from prior median sternotomy and suspected CABG. There is calcification of the aortic and mitral valves. The heart is not enlarged. No abnormal pericardial fluid is present. Calcified mediastinal lymph nodes are noted, suggestive of prior granulomatous disease. There is no abnormal axillary, mediastinal, or hilar lymph node enlargement. There is a large hiatal hernia with herniation of a si gnificant portion of the stomach into the thorax. There is a 1.2 x 1.1 x 1.3 cm exophytic hyperdensity identified arising off the superior pole of the right kidney. A subcentimeter hypodensities identified within the right hepatic lobe which is too small to definitively characterize. Prominent atherosclerotic calcifications noted within the visualized abdominal aorta and branch vessels. The remaining visualized upper abdominal contents demonstrate no significant abnormalities. The trachea and proximal airways are patent. Examination of the lungs demonstrates fibrotic changes/scarring with areas of architectural distortion with a peripheral/basilar predominance. There is no evidence for consolidation, pneumothorax, mass, suspicious nodule, or pleural effusion. There is a chronic compression deformity of the T7 vertebral which was present on prior chest radiographs. The remaining osseous structures demonstrate degenerative changes without evidence for acute fracture or destructive process. The extrathoracic soft tissues are unremarkable. IMPRESSION: 1. Chronic fibrotic changes of the lungs as detailed above. No evidence for focal consolidation, pneumothorax, mass/suspicious nodule, or pleural effusion. 2. Large hiatal hernia. 3. 1.3 cm exophytic hyperdensity identified arising off the superior pole of the right kidney. This may represent a hyperdense cyst but is incompletely characterized on this examination. Recommend evaluation with renal ultrasound examination to confirm cystic nature. Signed by: Dr. Vernon Dodd MD on 04/20/2020 12:43 PM Dictated By: VERNON DODD MD 1243 Transcribed By: SABRA on 04/20/20 1243 COPY TO: VOLODYMYR PETERSON MD CHEST 2 VIEWS 2020-03-31 15:53:00 [facility] [address] [address] Patient Name: PARESH LINTON MR #: [id number] : 1935 Age/Sex: 84/F Req #: [id number] Adm Physician: Ordered by: VOLODYMYR PETEROSN MD Report #: [id number] Location: [facility] Room/Bed: Procedure: [id number] DX/CHEST 2 VIEWS Exam Date: 03/31/20 Exam Time: 153 REPORT STATUS: Signed TECHNIQUE: Frontal and lateral views of the chest. INDICATION: [id number] SHORTNESS OF BREATH COMPARISON: 01/29/2019 IMPRESSION: Lines and hardware: Stable. Heart and mediastinum: Stable. Lungs and pleura: Retrocardiac opacity corresponds to the large hiatal hernia identified on prior CT. Left basilar atelectasis. Small bilateral pleural effusions. No pneumothorax. Soft tissues and bones: No acute bony abnormality. Signed by: Vadim Saenz MD on 03/31/2020 3:57 PM Dictated By: VADIM SAENZ DO 4231 Transcribed By: SABRA on 03/31/20 7130 COPY TO: VOLODYMYR PETERSON MD SCR MAMM BILATERAL REINA CAD DIGITAL 2019-11-27 11:34:26 - SCR MAMM BILATERAL REINA CAD DIGITALBILATERAL DIGITAL SCREENING MAMMOGRAM 3D/2D WITH CAD: 11/27/2019CLINICAL: Asymptomatic. Digital breast tomosynthesis was performed in addition to routine CC and MLO views. Current mammographic images were evaluated by either a [employer] M-Vu or a [employer] CAD (computer aided detection system). Comparison is made to exams dated 11/12/2018 mammogram, mammogram, and 10/01/2016 mammogram - [facility]. There are scattered fibroglandular tissues in both breasts. No suspicious mass, architectural distortion, malignant type calcification, or lymph node abnormality detected. Breast architecture is stable compared to prior exams.IMPRESSION: NEGATIVEThere is no mammographic evidence of malignancy. Resume annual screening mammography in one year. Myla Cruz M.D. dm/penrad:11/27/2019 11:34:26 copy to: Shelbi Cerda MD, ph: [phone], fax: [phone] Technologist: Sydnee DUBOSE, [facility] [place] sent: BIRADS 1-2 Normal Mammogram BI-RADS: 1 Negative US EXTREMITY SUN NON-VAS 2019-10-09 16:47:00 [address] [address] Patient Name: PARESH LINTON MR #: [id number] : 1935 Age/Sex: 83/F Req #: [id number] [facility] Physician: Ordered by: GUY BENITEZ MD Report #: [id number] Location: US Room/Bed: Procedure: [id number] US/US EXTREMITY SUN NON-VAS Exam Date: Exam Time: REPORT STATUS: Signed Left shoulder ultrasound. History: Left shoulder pain and limited range of motion. Comparison: None available. Discussion: Transverse and longitudinal sonographic images of the left shoulder were obtained. Comparison views of the right are also obtained. The left rotator cuff is not clearly visualized, asymmetric compared to the right side in which it is visualized. IMPRESSION: Poorly visualized left rotator cuff compared to the right, concerning for rotator cuff tear. Recommend cross sectional imaging. Signed by: Suman Menendez on 10/09/2019 4:49 PM Dictated By: SUMAN MENENDEZ MD 48 Transcribed By: SABRA on 10/09/191648 COPY TO: GUY BENITEZ MD COMPREHENSIVE METABOLIC PANEL 2019-04-01 10:54:00 Test Item SODIUM (test code = NA) 144 mmol/L 136-145 N POTASSIUM (test code = K) 4.2 mmol/L 3.5-5.1 N CHLORIDE (test code = CL) 111.0 mmol/L 98-107 H CARBON DIOXIDE (test code = CO2) 28.0 mmol/L 21-32 N ANION GAP (test code = GAP) 9.2 10-20 L GLUCOSE (test code = GLU) 95 mg/dL 74-106 N BLOOD UREA NITROGEN (test code = BUN) 18 mg/dL 7-18 N GLOMERULAR FILTRATION RATE (test code = GFR) 53 mL/min >=60 Estimated GFR by using Modified MDRD formula.Chronic kidney disease is defined as either kidney damageor GFR <60 mL/min/1.73 m2 for >3 months. CREATININE (test code = CREAT) 1.00 mg/dL 0.55-1.02 N Note change in reference range due to change in reagent. BUN/CREATININE RATIO (test code = BUN/CREA) 18.0 10-20 N TOTAL PROTEIN (test code = PROT) 7.4 gram/dL 6.4-8.2 N ALBUMIN (test code = ALB) 3.9 g/dL 3.4-5.0 N GLOBULIN (test code = GLOB) 3.5 gram/dL 2.7-4.2 N ALBUMIN/GLOBULIN RATIO (test code = A/G) 1.1 0.75-1.50 N CALCIUM (test code = CA) 9.3 mg/dL 8.5-10.1 N BILIRUBIN TOTAL (test code = BILT) 0.50 mg/dL 0.0-1.0 N SGOT/AST (test code = AST) 19 IUnit/L 15-37 N SGPT/ALT (test code = ALT) 19 IUnit/L 12-78 N ALKALINE PHOSPHATASE TOTAL (test code = ALKP) 50 IUnit/L 45-117 N Note change in reference range due to change in reagent. LIPID PROFILE (CORONARY RISK)2019-04-01 10:54:00* Test Item Value Reference Range Interpretation Comments TRIGLYCERIDES (test code = TRIG) 123 mg/dL 20-150 N CHOLESTEROL (test code = CHOL) 120 mg/dL 0-200 N CHOLESTEROL/HDL RATIO (test code = CHOLHDL) 2.0 RATIO 0-4.9 N RISK ASSOCIATED WITH CHOL/HDL RATIOS: Risk Male Female1/2 AVERAGE 3.43 3.27AVERAGE 4.97 4.442X AVERAGE 9.55 7.053X AVERAGE 23.39 11.04 REFERENCE VALUE IS RELATED TO RISK LEVELS ASRECOMMENDED BY THE [facility]. HEART, LUNG, AND BLOOD INST. HDL CHOLESTEROL (test code = HDL) 45 mg/dL 40-60 N LIPOPROTEIN LDL (test code = LDL) 67 mg/dL 100-129 L Reference Interval: mg/dL mmol/L Optimal <100 <2.6Near/above optimal 100-129 2.6- 3.3Borderline High 130-159 3.4-4.1High 160-189 4.1-4.9Very High >=190 >=4.9========= This LDL result is a direct measurement.========= COMPREHENSIVE METABOLIC [id number] 10:41:00* Test Item Value Reference Range Interpretation Comments SODIUM (test code = NA) 144 mmol/L 136-145 N POTASSIUM (test code = K) 4.2 mmol/L 3.5-5.1 N CHLORIDE (test code = CL) 111.0 mmol/L 98-107 H CARBON DIOXIDE (test code = CO2) mmol/L 21-32 ANION GAP (test code = GAP) 10-20 GLUCOSE (test code = GLU) mg/dL 74-106 BLOOD UREA NITROGEN (test code = BUN) mg/dL 7-18 GLOMERULAR FILTRATION RATE (test code = GFR) mL/min >=60 CREATININE (test code = CREAT) mg/dL 0.55-1.02 BUN/CREATININE RATIO (test code = BUN/CREA) 10-20 TOTAL PROTEIN (test code = PROT) gram/dL 6.4-8.2 ALBUMIN (test code = ALB) g/dL 3.4-5.0 GLOBULIN (test code = GLOB) gram/dL 2.7-4.2 ALBUMIN/GLOBULIN RATIO (test code = A/G) 0.75-1.50 CALCIUM (test code = CA) mg/dL 8.5-10.1 BILIRUBIN TOTAL (test code = BILT) mg/dL 0.0-1.0 SGOT/AST (test code = AST) IUnit/L 15-37 SGPT/ALT (test code = ALT) IUnit/L 12-78 ALKALINE PHOSPHATASE TOTAL (test code = ALKP) IUnit/L 45-117 LIPID PROFILE (CORONARY RISK)2019-04-01 10:41:00* Test Item Value Reference Range Interpretation Comments TRIGLYCERIDES (test code = TRIG) mg/dL 20-150 CHOLESTEROL (test code = CHOL) mg/dL 0-200 CHOLESTEROL/HDL RATIO (test code = CHOLHDL) RATIO 0-4.9 HDL CHOLESTEROL (test code = HDL) mg/dL 40-60 LIPOPROTEIN LDL (test code = LDL) mg/dL 100-129 - XR CHEST 2 [id number] 10:32:00 FAX: Sherron Daniels MD [phone] [place]: [address] St: PRE Name: PARESH CASE [facility] : [birth year] Age/S: 83/F [address] [facility] Unit #: [id number] Loc: G [place] [address] Phys: Sherron Amanda MD Acct: [id number] Dis Date: Status: PRE SDC PHONE #: [phone] Exam Date: 04/01/2019 0951 FAX #: [phone] Reason: PRE OP EXAMS: CPT CODE: [id number] XR CHEST 2 V 53683 TECHNIQUE - XR CHEST 2 V . COMPARISON: X-ray 10/21/2016 HISTORY: 83 years Female PRE OP FINDINGS: Lungs: No nodules. No air space or interstitial lung disease. Lungs are normal in volume. Mediastinum and rhonda: Large hiatal hernia measures 10 cm. Median sternotomy. Cardiovascular structures: No cardiome arabella. No abnormalities in vascular structures. Pleura/CP a ngles: Clear. No pneumothorax. Bones: Likely chronic compression fracture mid thoracic vertebral body on the lateral view. So ft tissues: No abnormalities. Tubes and lines: None. Other: None. IMPRESSION: No acute cardiopulmonary abno rmalities. at 1032 Reported and signed by: Maurisio Iniguez M.D. CC: Sherron Lee MD Technologist: RT Damien(R) Trnscrd Date/Time/By: 04/01/2019 ( 32) : By: Lyndon Orig Print D/T: S: 04/01/2019 (3853) PAGE 1 Signed Report PROTHROMBIN [id number] 10:30:00* Test Item Value Reference Range Interpretation Comments PROTHROMBIN TIME PATIENT (test code = PTP) 11.5 seconds 9.0-14.0 N INTERNATIONAL NORMAL RATIO (test code = INR) 1.0 0.8-1.2 N The therapeutic range for oral anticoagulant therapy formost indications is an international normalized ratio (INR)of between 2.0 and 3.0. The recommended therapeutic INRrange for various clinical situations is listed below: Clinical Situation INR range Pulmonary e mbolism treatment (2.0-3.0)Venous thrombosis treatmentVenous thrombosis prophylaxis (high risk surgery)Prevention of systemic embolism from: Acute myocardial infarction Valvular heart disease Atrial fibrillation Mechanical prosthetic heart valves (2.5-3.5) THROMBOPLASTIN TIME [id number] 10:30:00* Test Item Value Reference Range Interpretation Comments THROMBOPLASTIN TIME PARTIAL (test code = PTT) 31.0 seconds 25.0-36. 5 N CBC W/AUTO [id number] 10:16:00* Test Item Value Reference Range Interpretation Comments WHITE BLOOD CELL (test code = WBC) 5.0 K/mm3 4.5-12.5 N RED BLOOD CELL (test code = RBC) 4.58 mill/mm3 3.7-5.2 N HEMOGLOBIN (test code = HGB) 13.8 gram/dL 11.5-15.5 N HEMATOCRIT (test code = HCT) 43.6 % 36.0-46.0 N MEAN CELL VOLUME (test code = MCV) 95.2 fL 80-98 N MEAN CELL HGB (test code = MCH) 30.1 picogram 27.0-33.0 N MEAN CELL HGB CONCETRATION (test code = MCHC) 31.7 gram/dL 33.0-36. 0 L RED CELL DISTRIBUTION WIDTH (test code = RDW) 14.5 % 11.6-16. 2 N RED CELL DISTRIBUTION WIDTH SD (test code = RDW-SD) 50.7 fL 37 .0-51.0 N PLATELET COUNT (test code = PLT) 392 K/mm3 150-450 N MEAN PLATELET VOLUME (test code = MPV) 9.9 fL 6.7-11.0 N NEUTROPHIL % (test code = NT%) 53.6 % 39.0-69.0 N IMMATURE GRANULOCYTE % (test code = IG%) 0.4 % 0.0-5.0 N LYMPHOCYTE % (test code = LY%) 23.7 % 25.0-55.0 L MONOCYTE % (test code = MO%) 16.3 % 0.0-10.0 H EOSINOPHIL % (test code = EO%) 5.2 % 0.0-5.0 H BASOPHIL % (test code = BA%) 0.8 % 0.0-1.0 N NUCLEATED RBC % (test code = NRBC%) 0.0 % 0-0 N NEUTROPHIL # (test code = NT#) 2.69 K/mm3 1.8-7.7 N IMMATURE GRANULOCYTE # (test code = IG#) 0.02 x10 3/uL 0-0.03 N LYMPHOCYTE # (test code = LY#) 1.19 K/mm3 1.0-5.0 N MONOCYTE # (test code = MO#) 0.82 K/mm3 0-0.8 H EOSINOPHIL # (test code = EO#) 0.26 K/mm3 0.0-0.5 N BASOPHIL # (test code = BA#) 0.04 K/mm3 0.0-0.2 N NUCLEATED RBC # (test code = NRBC#) 0.00 K/mm3 0.0-0.1 N MANUAL DIFF REQUIRED (test code = MDIFF) NO CHEST 2 [id number] 17:08:00 [place] [address] Patient Name: PARESH LINTON MR #: [id number] : 1935 Age/Sex: 83/F Req #: [id number] Adm Physician: Ordered by: VOLODYMYR PETERSON MD Report #: [id number] Location: [facility] Room/Bed: Procedure: [id number] DX/C HEST 2 VIEWS Exam Date: 01/29/19 Exam Time: 1635 REPORT STATUS: Signed Frontal and l ateral views of the chest. HISTORY: Dyspnea on exertion COMPARISON: Nupur st radiograph July 31, 2018. DISCUSSION: Soft tissue attenuatio n partially limits sensitivity of the exam. Lungs: Mild bibasilar atele ctasis, left greater than right. No evidence of a consolidative pneumonia or p ulmonary alveolar edema. Pleura: Trace pleural effusions versus pleural thickening. Heart and mediastinum: The cardiomediastinal silhouette ap pears unremarkable. Atherosclerotic vascular calcifications at the aortic arch . Bones and soft tissues: Multiple median sternotomy wires. I MPRESSION: 1. Mild bilateral atelectasis, left greater than right. 2. Tra ce bilateral pleural effusions versus pleural thickening. 3. No consolidative pneumonia or pulmonary alveolar edema. Signed by: Naomi Swartz.O., M .M.M. on 01/29/2019 5:11 PM Dictated By: SARATH RUFFIN DO Electronically Si gned By: SARATH RUFFIN DO on 01/29/19 1711 Transcribed By: SABRA on 01/29/19 17 11 COPY TO: VOLODYMYR PETERSON MD SCR MAMM BILATERAL REINA CAD DIGITAL 2018-11-14 12:02:07 - SCR MAMM BILATERAL REINA CAD DIGITALBILATERAL DIGITAL SCREENING MAMMOGRAM 3D/2D WITH CAD: 11/12/2018CLINICAL: Asymptomatic. Digital breast tomosynthesis was performed in addition to routine CC and MLO views. Current mammographic images were evaluated by either a [employer] M-Vu or a [employer] ImageChecker CAD (computer aided detection system). Comparison is made to exams dated 11/10/2017 mammogram, 10/01/2016 mammogram, and 09/30/2015 mammogram - [facility]. There are scattered fibroglandular tissues in both breasts. No suspicious mass, architectural distortion, malignant type calcification, or lymph node abnormality detected. Breast architecture is stable compared to prior exams.IMPRESSION: NEGATIVEThere is no mammographic evidence of malignancy. Resume annual screening mammography in one year. Myla izquierdo/jeimy:11/14/2018 12:02:07 copy to: Shelbi Cerda MD, ph: [phone], fax: [phone] Technologist: Radha DUBOSE, [facility] sent: BIRADS 1-2 Normal Mammogram BI-RADS: 1 NegativeUrine [id number] 15:49:00* Test Item Value Reference Range Interpretation Comments Urine WBC (test code = 5821-4) NONE 0-5 [facility] [id number] 15:49:00* Test Item Value Reference Range Interpretation Comments Urine RBC (test code = 40045-3) NONE 0-5 [facility] Imsavgzi4891-41-80 15:49:00* Test Item Value Reference Range Interpretation Comments Urine Bacteria (test code = 50234-7) NONE NONE [facility] Epithelial Iikzu6656-38-75 15:49:00 * Test Item Value Reference Range Interpretation Comments Urine Epithelial Cells (test code = 05417-4) RARE NONE [facility] Fxfjv6285-27-20 15:43:00* Test Item Value Reference Range Interpretation Comments Urine Color (test code = 5778-6) YELLOW YELLOW [facility] [id number] 15:43:00* Test Item Value Reference Range Interpretation Comments Urine Clarity (test code = 59577-8) CLEAR CLEAR [facility] ChildrenU[facility] Specific Lyazoym5069-68-70 15:43:00 * Test Item Value Reference Range Interpretation Comments Urine Specific [place] (test code = 5811-5) 1.010 1.010-1.02 5 [facility] Children[facility] [id number] 15:43:00* Test Item Value Reference Range Interpretation Comments Urine pH (test code = 05497-1) 7 5-7 [facility] Leukocyte Qsjhsjke4216-64-61 15:43:00* Test Item Value Reference Range Interpretation Comments Urine Leukocyte Esterase (test code = 5799-2) NEGATIVE NEGATIVE [facility] Orqnqug9929-85-19 15:43:00* Test Item Value Reference Range Interpretation Comments Urine Nitrite (test code = 81276-1) NEGATIVE NEGATIVE [facility] ChildrenU[facility] Rmwpypt3487-13-56 15:43:00* Test Item Value Reference Range Interpretation Comments Urine Protein (test code = 5804-0) NEGATIVE NEGATIVE [facility] Children[facility] Glucose (UA)2018-07-31 15:43:00* Test Item Value Reference Range Interpretation Comments Urine Glucose (UA) (test code = 2349-9) NEGATIVE NEGATIVE [facility] ChildrenU[facility] Zejvpen2879-90-72 15:43:00* Test Item Value Reference Range Interpretation Comments Urine Ketones (test code = 75830-9) NEGATIVE NEGATIVE [facility] ChildrenU[facility] Wjgjugsnemrz9163-67-47 15:43:00* Test Item Value Reference Range Interpretation Comments Urine Urobilinogen (test code = 87140-0) 0.2 0.2-1 [facility] Children[facility] Blenyyder9863-40-71 15:43:00* Test Item Value Reference Range Interpretation Comments Urine Bilirubin (test code = 1978-6) NEGATIVE NEGATIVE [facility] ChildrenU[facility] Hekon3016-84-55 15:43:00* Test Item Value Reference Range Interpretation Comments Urine Blood (test code = 25879-4) NEGATIVE NEGATIVE [facility] ChildrenCHEST SINGLE (PORTABLE)2018-07-31 14:30:00 [place] [address] Patient Name: PARESH LINTON MR #: [id number] : 1935 Age/Sex: 82/F Req #: [id number] Adm Physician: Ordered by: COLLIN ARMIJO RIVETER PNEUMATIC Report #: [id number] Location: ER Room/Bed: Procedure: [id number] DX/CHEST SINGLE (PORTABLE) Exam Date: 07/31/18 Exam Time: [address] ATUS: Signed A single frontal view of the chest. HISTORY: Weak, rectal bleeding, history of GI bleed COMPARISON: Images from CT of the chest dated 2017. DISCUSSION: Portable technique, limits sensitivity of the exam. Soft tissue attenuation partially limits sensitivity of the exam. Tubes/Lines: Overlying monitoring leads. Lungs and pleura: Hyperinflat ed mid to upper lungs, results in bibasilar vascular crowding. No evidence of a consolidative pneumonia or pulmonary alveolar edema. No definite pleural eff usion or pneumothorax is identified. Heart and mediastinum: The cardiom ediastinal silhouette appears unremarkable. Tortuosity of the thoracic aorta. Bones: Multiple median sternotomy wires. IMPRESSION: 1. H yperinflated lungs, compatible with obstructive lung disease. 2. No consolida tive pneumonia or pulmonary edema. Signed by: Jayla SwartzOTom, M.M.M. on 07/31/2018 2:33 PM Dictated By: SARATH RUFFIN DO Electronic ally Signed By: SARATH RUFFIN DO on 07/31/18 1433 Transcribed By: SABRA on 07/14 06/30 1433 COPY TO: COLLIN ARMIJO RIVETER PNEUMATIC B-Type Natriuretic Peptide 2018-07-31 14:28:00* Test Item Value Reference Range Interpretation Comments B-Type Natriuretic Peptide (test code = 11118-1) 174.3 0-100 H [facility] ChildrenCreatine Kinase [id number] 13:57:00* Test Item Value Reference Range Interpretation Comments Creatine Kinase MB (test code = 72872-0) 0.30 0-5.0 [facility] ChildrenTroponin [id number] 13:57:00* Test Item Value Reference Range Interpretation Comments Troponin I (test code = GHY1613) 0.076 0-0.300 [facility] Xrwqn9561-23-87 13:52:00* Test Item Value Reference Range Interpretation Comments Sodium Level (test code = 2951-2) 141 136-145 [facility] ChildrenPotassium Dbiqc9697-89-51 13:52:00* Test Item Value Reference Range Interpretation Comments Potassium Level (test code = 2823-3) 3.9 3.5-5.1 [facility] ChildrenChloride Eshxk8794-73-88 13:52:00* Test Item Value Reference Range Interpretation Comments Chloride Level (test code = 2075-0) 106 98-107 [facility] ChildrenCarbon Dioxide Jvsel1246-35-58 13:52:00* Test Item Value Reference Range Interpretation Comments Carbon Dioxide Level (test code = 2028-9) 21 22-29 L [facility] ChildrenAnion Ncl1881-43-91 13:52:00* Test Item Value Reference Range Interpretation Comments Anion Gap (test code = 13817-1) 17.9 8-16 H [facility] ChildrenBlood Urea Pvmnftag3538-68-48 13:52:00* Test Item Value Reference Range Interpretation Comments Blood Urea Nitrogen (test code = 3094-0) 20 7-26 [facility] ChildrenCreatinine2018-09-18 13:52:00* Test Item Value Reference Range Interpretation Comments Creatinine (test code = 2160-0) 0.94 0.57-1.11 [facility] ChildrenBUN/Creatinine Oikqn7038-64-06 13:52:00* Test Item Value Reference Range Interpretation Comments BUN/Creatinine Ratio (test code = 3097-3) 21 6-25 [facility] ChildrenEstimat Glomerular Filtration Rate 2018-07-31 13:52:00* Test Item Value Reference Range Interpretation Comments Estimat Glomerular Filtration Rate (test code = 011736043) 57 >60 L Ranges were taken from the National Kidney Disease Education Program and the [facility] literature.Reference ranges:60 or greater: Mrnabp10-85 ( for 3 consecutive months): Chronic kidney disease 15 or less: Kidney failureTexas [facility]ite Hospital for ChildrenGlucose Reifo9837-57-14 13:52:00* Test Item Value Reference Range Interpretation Comments Glucose Level (test code = QXF0345) 110 74-118 [facility] ChildrenCalcium Vmbbt0372-55-58 13:52:00* Test Item Value Reference Range Interpretation Comments Calcium Level (test code = 18950-7) 9.7 8.4-10.2 [facility] ChildrenMagnesium Xfsuf8935-78-45 13:52:00* Test Item Value Reference Range Interpretation Comments Magnesium Level (test code = 95879-4) 1.6 1.3-2.1 [facility] ChildrenTotal Oglxhetdm3251-52-55 13:52:00* Test Item Value Reference Range Interpretation Comments Total Bilirubin (test code = 1975-2) 0.5 0.2-1.2 [facility] ChildrenAspartate Amino Transf (AST/SGOT) 2018-07-31 13:52:00* Test Item Value Reference Range Interpretation Comments Aspartate Amino Transf (AST/SGOT) (test code = Aspartate Amino Transf (AST/SGOT)) 37 5-34 H [facility] ChildrenAlanine Aminotransferase (ALT/SGPT) 2018-07-31 13:52:00* Test Item Value Reference Range Interpretation Comments Alanine Aminotransferase (ALT/SGPT) (test code = 1742-6) 24 0-55 [facility] ChildrenTotal Foglmzq2932-41-45 13:52:00* Test Item Value Reference Range Interpretation Comments Total Protein (test code = 2885-2) 7.4 6.5-8.1 [facility] ChildrenAlbumin2018-09-18 13:52:00* Test Item Value Reference Range Interpretation Comments Albumin (test code = 1751-7) 4.0 3.5-5.0 [facility] ChildrenGlobulin2018-09-18 13:52:00* Test Item Value Reference Range Interpretation Comments Globulin (test code = 85979-3) 3.4 2.3-3.5 [facility] ChildrenAlbumin/Globulin Wiuzx0917-69-87 13:52:00 * Test Item Value Reference Range Interpretation Comments Albumin/Globulin Ratio (test code = 1759-0) 1.2 0.8-2.0 [facility] ChildrenAlkaline Ntaqmddbxly4794-78-25 13:52:00* Test Item Value Reference Range Interpretation Comments Alkaline Phosphatase (test code = 6768-6) 48 40-150 [facility] ChildrenCreatine Xzdunm9218-45-20 13:52:00* Test Item Value Reference Range Interpretation Comments Creatine Kinase (test code = 2157-6) 13 29-168 L [facility] ChildrenAmylase Mcprc2674-66-14 13:52:00* Test Item Value Reference Range Interpretation Comments Amylase Level (test code = 1798-8) 68 25-125 [facility] ChildrenLipase2018-09-18 13:52:00* Test Item Value Reference Range Interpretation Comments Lipase (test code = 3040-3) 51 8-78 [facility] ChildrenProthrombin Hpfz5794-49-29 13:41:00* Test Item Value Reference Range Interpretation Comments Prothrombin Time (test code = 5902-2) 13.3 11.9-14.5 [facility] ChildrenProthromb Time International Ratio 2018-07-31 13:41:00* Test Item Value Reference Range Interpretation Comments Prothromb Time International Ratio (test code = 6301-6) 1.09 Oral Anticoagulant Therapy INR Values:1. Low Intensity Therapy 1.5 - 2.02 . Moderate Intensity Therapy 2.0 - 3.03. High Intensity Therapy(1) 2.5 - 3. 54. High Intensity Therapy(2) 3.0 - 4.05. Panic Value INR > 5.0 [facility] ChildrenActivated Partial Thromboplast Time 2018-07-31 13:41:00* Test Item Value Reference Range Interpretation Comments Activated Partial Thromboplast Time (test code = 34038-1) 24.6 23.8-35.5 [facility] ChildrenWhite Blood Iqomg8384-65-20 13:36:00* Test Item Value Reference Range Interpretation Comments White Blood Count (test code = 6690-2) 4.30 4.8-10.8 L [facility] ChildrenRed Blood Crveu9932-24-12 13:36:00* Test Item Value Reference Range Interpretation Comments Red Blood Count (test code = 789-8) 4.53 3.6-5.1 [facility] ChildrenHemoglobin2018-09-18 13:36:00* Test Item Value Reference Range Interpretation Comments Hemoglobin (test code = 93264-3) 14.1 12.0-16.0 [facility] ChildrenHematocrit2018-09-18 13:36:00* Test Item Value Reference Range Interpretation Comments Hematocrit (test code = 4544-3) 41.8 34.2-44.1 [facility] ChildrenMean Corpuscular Sgzsjn1554-58-31 13:36:00* Test Item Value Reference Range Interpretation Comments Mean Corpuscular Volume (test code = 787-2) 92.3 81-99 [facility] ChildrenMean Corpuscular Iutzxzbyne6033-42-26 13:36:00* Test Item Value Reference Range Interpretation Comments Mean Corpuscular Hemoglobin (test code = 785-6) 31.1 28-32 [facility] ChildrenMean Corpuscular Hemoglobin Concent 2018-07-31 13:36:00* Test Item Value Reference Range Interpretation Comments Mean Corpuscular Hemoglobin Concent (test code = 786-4) 33.7 31-35 [facility] ChildrenRed Cell Distribution Omeih5740-50-59 13:36:00* Test Item Value Reference Range Interpretation Comments Red Cell Distribution Width (test code = 71093-6) 13.6 11.7 -14.4 [facility] ChildrenPlatelet Prfgx1851-25-63 13:36:00* Test Item Value Reference Range Interpretation Comments Platelet Count (test code = 777-3) 346 140-360 [facility] ChildrenNeutrophils (%) (Auto)2018-07-31 13:36:00 * Test Item Value Reference Range Interpretation Comments Neutrophils (%) (Auto) (test code = 62373-5) 54.2 38.7-80.0 [facility] ChildrenLymphocytes (%) (Auto)2018-07-31 13:36:00 * Test Item Value Reference Range Interpretation Comments Lymphocytes (%) (Auto) (test code = 736-9) 19.8 18.0-39.1 [facility] ChildrenMonocytes (%) (Auto)2018-07-31 13:36:00* Test Item Value Reference Range Interpretation Comments Monocytes (%) (Auto) (test code = 5905-5) 23.5 4.4-11.3 H [facility] ChildrenEosinophils (%) (Auto)2018-07-31 13:36:00 * Test Item Value Reference Range Interpretation Comments Eosinophils (%) (Auto) (test code = 713-8) 1.6 0.0-6.0 [facility] ChildrenBasophils (%) (Auto)2018-07-31 13:36:00* Test Item Value Reference Range Interpretation Comments Basophils (%) (Auto) (test code = 706-2) 0.7 0.0-1.0 [facility] ChildrenIM GRANULOCYTES %2018-07-31 13:36:00* Test Item Value Reference Range Interpretation Comments IM GRANULOCYTES % (test code = IM GRANULOCYTES %) 0.2 0.0- 1.0 [facility] ChildrenNeutrophils # (Auto)2018-07-31 13:36:00* Test Item Value Reference Range Interpretation Comments Neutrophils # (Auto) (test code = 751-8) 2.3 2.1-6.9 [facility] ChildrenLymphocytes # (Auto)2018-07-31 13:36:00* Test Item Value Reference Range Interpretation Comments Lymphocytes # (Auto) (test code = 88792-4) 0.9 1.0-3.2 L [facility] ChildrenMonocytes # (Auto)2018-07-31 13:36:00* Test Item Value Reference Range Interpretation Comments Monocytes # (Auto) (test code = 742-7) 1.0 0.2-0.8 H [facility] ChildrenEosinophils # (Auto)2018-07-31 13:36:00* Test Item Value Reference Range Interpretation Comments Eosinophils # (Auto) (test code = 711-2) 0.1 0.0-0.4 [facility] ChildrenBasophils # (Auto)2018-07-31 13:36:00* Test Item Value Reference Range Interpretation Comments Basophils # (Auto) (test code = 704-7) 0.0 0.0-0.1 [facility] ChildrenAbsolute Immature Granulocyte (auto 2018-07-31 13:36:00* Test Item Value Reference Range Interpretation Comments Absolute Immature Granulocyte (auto (malik t code = Absolute Immature Granulocyte (auto) 0.01 0-0.1 [facility] [address] [place] [address] Patient Name: PARESH LINTON MR #: [id number] : 1935 Age/Sex: 82/F Req #: [id number] Adm Physician: Ordered by: VOLODYMYR PETERSON MD Report #: [id number] Location: CT Room/Bed: Procedure: [id number] CT/CT CHEST WO Exam Date: 03/13 06/30 Exam Time: 0840 REPORT STATUS: Signed P ROCEDURE: CT CHEST WITHOUT CONTRAST CT scan of the chest WITHOUT intravenous c ontrast, using standard protocol. TECHNIQUE: The chest was scanned ut ilizing a multidetector helical scanner from the apex to the level of the adr enal glands. No IV contrast was administered per physician's request. Lucero l and sagittal multiplanar reformations were obtained. COMPARISON: [facility], CT, CT CHEST WO, 08/15/2017, 12:42. INDICATIONS: SHORTNESS OF BREATH FINDINGS: Lines/tubes: None. Lungs and A irways: Stable mild subpleural reticulation and linear scarring in the latera l right middle lobe, lateral, right lower lobe and lingula. Stable linear o pacities in the lingula and anterior left lower lobe extending to the pleural surface (series 3, image 73 and 65), consistent with scarring. No pulmonary nodules, masses, or consolidation. Airways are clear, without endobronchial lesions. Pleura: No effusion, or pneumothorax. Heart and mediastinum : Stable 1.0 cm hypodense lesion in the left thyroid lobe (series 2 image 14) . Heart size is normal. No pericardial effusion. Atherosclerotic calcificatio n of the aortic valve, coronary arteries, thoracic aorta and mitral annulus. Aorta is non-aneurysmal. The main pulmonary artery is normal in caliber, maurice uring 2.9 cm. Lymph nodes: Slight interval increase in size in mildly enl arged right lower paratracheal lymph node (series 2, image 39), which measure s 1.4 cm in short axis and contains a normal fatty hilum. Stable calcified right lower paratracheal and subcarinal lymph nodes (series 2, images 36 and 47). No other mediastinal or any hilar or axillary adenopathy.. Abdomen: Limited views of the upper abdomen show no abnormality within the visualized spleen, pancreas, or kidneys. The adrenal glands are normal. 8mm fluid densit y hypodense lesion in hepatic segment V, consistent with a simple cyst (serie s 2, image 104). Large hiatal hernia, containing a portion of the stomach fun dus. Bones: No aggressive lytic lesions. Multilevel degenerative disc c hanges in the thoracic spine. Old compression deformity of T8, which is stabl e. Generalized osteopenia. Midline sternotomy wires. Soft tissues are grossly unremarkable. IMPRESSION: 1. stable findings in bilateral lower lo bes, consistent with mild subpleural fibrotic changes. 2. Stable linear sca rring in the lingula and anterior right lower lobe. No consolidation, masses, or pulmonary nodules. 3. Stable 1.0 cm nodule in the left thyroid lobe. This may be further evaluated with dedicated thyroid ultrasound. 4. Slight inter patricia increase in size of mildly enlarged right lower paratracheal lymph node, which is likely reactive, given the normal fatty hilum and lack of other duran opathy. Calcified mediastinal nodes are again seen, consistent with prior gra nulomatous disease. 7. Large hiatal hernia. Yousif romero M.D. Dictated by: Yousif Weiner M.D. on 03/30/2018 at 19:01 E lectronically approved by: Yousif Weiner M.D. on 03/30/2018 at 19:01 Dictated By: YOUSIF WEINER MD 00 Transcribed By: MARCIA on 03/30/181900 COPY TO: VOLODYMYR PETERSON MD CT CHEST WO [facility] [address] [place] [address] Patient Name: PARESH LINTON MR #: [id number] : 1935 Age/Sex: 81/F Req #: [id number] Adm Physician: Ordered by: VOLODYMYR PETERSON MD Report #: [id number] Location: CT Room/Bed: Procedure: [id number] CT/CT CHEST WO Exam Date: 01/27 Exam Time: 1230 REPORT STATUS: Signed P ROCEDURE: CT CHEST WITHOUT CONTRAST CT scan of the chest WITHOUT intravenous c ontrast, using standard protocol. TECHNIQUE: The chest was scanned ut ilizing a multidetector helical scanner from the apex to the level of the adr enal glands. No IV contrast was administered per physician's request. Lucero l and sagittal multiplanar reformations were obtained. COMPARISON: None . INDICATIONS: SHORTNESS OF BREATH FINDINGS: Lines/tubes: N one. Lungs and Airways: Mild subpleural reticulation and linear scarring i n the lateral right middle lobe (series 3, image 17, and lateral right low er lobe and lingula (series 3, images 83 and 81). Linear opacities in the ling luis alberto extending to the pleural surface (series 3, image 59), consistent with sc arring. No pulmonary nodules, masses, or consolidation. Airways are clear, w ithout endobronchial lesions. Pleura: No effusion, or pneumothorax. Heart and mediastinum: 1.0 x 0.9 cm hypodense lesion in the left thyroid lobe (series 2 image 13). Heart size is normal. No pericardial effusion. Atherosc lerotic calcification of the aortic valve, coronary arteries, thoracic aorta and mitral annulus. Aorta is non-aneurysmal. Main pulmonary artery is normal in caliber, measuring 2.9 cm. Lymph nodes: Mildly enlarged right lower par atracheal lymph node (series 2 image 41), with a normal fatty hilum. No other enlarged mediastinal, or any hilar or axillary adenopathy. Calcified right l ower paratracheal and subcarinal lymph nodes (series 2, images 38 and 47). Abdomen: Limited views of the upper abdomen show no abnormality within the visualized liver, spleen, pancreas, or kidneys. The adrenal glands are norm al. Atherosclerotic calcification of the abdominal aorta and aortic branches. Moderate hiatal hernia containing a portion of the stomach fundus. Bon es: No acute bony abnormalities. Multilevel degenerative disc changes in the thoracic spine. Age-indeterminate compression deformity of T8. Generalized os teopenia. Midline sternotomy wires. Soft tissues are grossly unremarkable. IMPRESSION: 1. findings in bilateral lower lobes consistent with mild subpleural fibrotic changes. 2. Linear scarring in the lingula. 3. No co nsolidation, masses, or pulmonary nodules. 4. 1.0 cm nodule in the left thyroi d lobe. Dedicated thyroid ultrasound would be helpful for further evaluation. 5. Mildly enlarged right lower paratracheal lymph node is likely reactive and has normal fatty hilum. No other adenopathy is identified. Calcified medi astinal nodes suggesting prior granulomatous disease. 6. Moderate hiatal herni a, containing a portion of the stomach fundus. Yousif valdovinos M.D. Dictated by: Yousif Weiner M.D. on 08/15/2017 at 18:50 Electronically approved by: Yousif Weiner M.D. on 08/15/2017 at 18:50 Dictated By: YOUSIF WEINER MD 49 Transcribed By: MARCIA on 08/15/171849 COPY T O: VOLODYMYR PETERSON MD
--- OUTSIDE RECORDS SUMMARY | 2020-07-31 10:26 | XMS REPORT | Continuity of Care Document ---
Author Author [facility] t Organization [facility] Address [address] [place] [id number] Phone Unavailable Care Team Providers Care Farm Management Adviser Name Role Phone SHELBI PRESSLEY MD PCP MAURISIO DALE Attphys Unavailable Etienne PETERSON Attphys Unavailable GUY BENITEZ Attphys Unavailable Karmen STEELE Attphys Unavailable MAURISIO DALE Admphys Unavailable Payers Payer Name Policy Type Policy Number Effective Date Expiration Date Catalina Stevens Ppo [id number] 2014 00:00:00 [facility] Medicare A & B [id number] 1999 00:00:00 [facility] Problems Condition Name Condition Details Condition Category Status Onset Date Resolution Date Last Treatment Date Treating Clinician Comments Source Upper gastrointestinal hemorrhage Upper GI bleed Problem Active [facility] Allergies, Adverse Reactions, Alerts Allergy Name Allergy Type Status Severity Reaction(s) Onset Date Inacti ve Date Treating Clinician Comments Source Cephalexin Monohydrate Allergy to Substance Active Mild YADI H, REDNESS, FEVER 2018-07-31 00:00:00 [facility] clavulanic acid Allergy to Substance Active Mild 2018-07-31 00:0 0:00 [facility] Sulfamethoxazole Allergy to Substance Active Mild RASH, RED NESS, FEVER 2018-07-31 00:00:00 [facility] Trimethoprim Allergy to Substance Active Mild RASH, REDNESS , FEVER 2018-07-31 00:00:00 [facility] Amoxicillin Allergy to Substance Active Mild 2018-07-31 00:00:00 [facility] Levofloxacin Allergy to Substance Active Mild TENDONITIS 2018-07-31 00:00:00 [facility] cephalexin DA Active RI 2015-04-24 00:00:00 [facility] clavulanic acid DA Active RI 2015-04-24 00:00:00 [facility] sulfamethoxazole DA Active RI 2015-04-24 00:00:00 [facility] trimethoprim DA Active RI 2015-04-24 00:00:00 [facility] amoxicillin DA Active RI 2015-04-24 00:00:00 [facility] levofloxacin DA Active RI 2015-04-24 00:00:00 [facility] Medications Ordered Medication Name Filled Medication Name Start Date Stop Da te Current Medication? Ordering Clinician Indication Dosage Frequency Signature (SIG) Comments Components Source Amlodipine Besylate 5 Mg Tablet Amlodipine Besylate 5 Mg Tablet Yes 5 Daily [facility] Fenofibrate Nanocrystallized (Tricor) 145 Mg Tablet Fe nofibrate Nanocrystallized (Tricor) 145 Mg Tablet Yes 145 Daily [facility] Levothyroxine Sodium 50 Mcg Tablet Levothyroxine Sodium 50 Mcg Tablet Yes 50 Daily [facility] Loratadine/Pseudoephedrine (Claritin-D 24 Hour Tablet) 1 Each Tab.er.24h Loratadine/Pseudoephedrine (Claritin-D 24 Hour Tablet) 1 Each Tab.er.24h Yes 1 Daily [facility] Metoprolol Tartrate 50 Mg Tablet Metoprolol Tartrate 50 Mg Tablet Yes 50 Three Times A Day [facility] Simvastatin 40 Mg Tablet Simvastatin 40 Mg Tablet Yes 40 Today At 9:00PM [facility] Singular Singular Yes 10 Daily [facility] Symbicort Symbicort Yes As Needed [facility] Pantoprazole Sodium (Protonix) 20 Mg Tablet., 20 Mg Oral Pantoprazole Sodium (Protonix) 20 Mg Tablet., 20 Mg Oral 2017-04-11 00:00:00 No 20 Daily [facility] Biotin 1 Mg Tablet, 1 Mg Oral Biotin 1 Mg Tablet, 1 Mg Oral 2017-04-07 00:00:00 No 1 Daily [facility] Dicyclomine Hcl (Bentyl) 10 Mg Capsule, 10 Mg Oral Dic yclomine Hcl (Bentyl) 10 Mg Capsule, 10 Mg Oral 2017-04-07 00:00:00 No 10 Three Times A Day for Abdominal Pain [facility] Gabapentin 100 Mg Capsule, 100 Mg Oral Gabapentin 100 Mg Capsule , 100 Mg Oral 2017-04-07 00:00:00 No 100 Bedtime [facility] Lactobac Cmb #3/Fos/Pantethine (Probioti c & Acidophilus Cap) 1 Each Capsule, Oral Lactobac Cmb #3/Fos/Pantethine (Probioti c & Acidophilus Cap) 1 Each Capsule, Oral 2017-04-07 00:00:00 No Twice A Day [facility] Losartan/Hydrochlorothiazide (Hyzaar 100-25 Tablet) 1 Each Tablet, 1 Each Oral Losartan/Hydrochlorothiazide (Hyzaar 100-25 Tablet) 1 Each Tablet, 1 Each Oral 2017-04-07 00:00:00 No 1 Daily [facility] Metoprolol Succinate 100 Mg Tab.sr.24h, 100 Mg Oral Me toprolol Succinate 100 Mg Tab.sr.24h, 100 Mg Oral 2017-04-07 00:00:00 No 100 Twice A Day [facility] Nasocort Ameliat , 2017-04-07 00:00:00 No Beatrice ly [facility] Procedures Procedure Date / Time Performed Performing Clinician Sourc e Limited non-vascular ultrasound of extremity 2019-10-09 00:0 0:00 GUY BENITEZ [facility] Encounters Start Date/Time End Date/Time En[facility] ID Source 2019-11-28 13:00:00 2019-12-13 23:59:00 Discharged Recurring [facility] [id number] [facility] 2019-10-29 13:09:00 2019-11-12 23:59:00 Discharged Recurring [facility] [id number] [facility] 2019-10-09 14:58:00 2019-10-09 14:58:00 Registered Clinic 3 GUY BENITEZ [facility] [id number] [facility] 2019-01-29 16:19:00 2019-01-29 16:19:00 Registered Clinic 3 VOLODYMYR ABBASI [facility] [id number] [facility] 2018-07-31 12:37:00 2018-07-31 18:25:00 Departed Emergency Room 1 EVANS STEELE [facility] [id number] [facility] 2018-04-06 14:57:00 2018-04-06 14:57:00 Registered Clinic [facility] [id number] [facility] 2018-03-30 08:33:00 2018-03-30 08:33:00 Registered Clinic 3 VOLODYMYR ABBASI [facility] [id number] [facility] Results Test Description Test Time Test Comments Results Result Comments Source CT CHEST W 2020-07-30 21:37:00 [facility] [address] [address] Patient Name: PARESH LINTON MR #: [id number] : 1935 Age/Sex: 84/F Req #: [id number] Adm Physician: MAURISIO DALE MD Ordered by: VOLODYMYR PETERSON MD Report #: [id number] Location: MED/SURG3 Room/Bed: [facility] Procedure: [id number] CT/CT CHEST W Exam Date: 07/30/20 Exam [...] PETERSON MD CHEST SINGLE (PORTABLE) 2020-07-30 13:46:[address] [address] Patient Name: PARESH LINTON MR #: [id number] : 1935 Age/Sex: 84/F Req #: [id number] Adm Physician: Ordered by: WOOD DEAL DO Report #: [id number] Location: ER Room/Bed: Procedure: [id number] DX/CHEST SINGLE (PORTABLE) Exam Date: 07/30/20 Exam [...] SABRA on 07/30/20 1350 COPY TO: WOOD EDAL DO CHEST 2 VIEWS 2020-07-29 18:38:00 [address] [address] Patient Name: PARESH LINTON MR #: [id number] : 1935 Age/Sex: 84/F Req #: [id number] Adm Physician: Ordered by: VOLODYMYR PETERSON MD Report #: [id number] Location: [facility] Room/Bed: Procedure: [id number] DX/CHEST 2 VIEWS Exam Date: 07/29/20 Exam [...] PETERSON MD CT CHEST WO 2020-04-20 12:28:[address] [address] Patient Name: PARESH LINTON MR #: [id number] : 1935 Age/Sex: 84/F Req #: [id number] Adm Physician: Ordered by: VOLODYMYR PETERSON MD Report #: [id number] Location: CT Room/Bed: Procedure: [id number] CT/CT CHEST WO Exam Date: 04/20/20 Exam [...] PETERSON MD CHEST 2 VIEWS 2020-03-31 15:53:00 [facility] [address] [address] Patient Name: PARESH LINTON MR #: [id number] : 1935 Age/Sex: 84/F Req #: [id number] Adm Physician: Ordered by: VOLODYMYR PETERSON MD Report #: [id number] Location: [facility] Room/Bed: Procedure: [id number] DX/CHEST 2 VIEWS Exam Date: 03/31/20 Exam Time: 153 REPORT STATUS: Signed TECHNIQUE: Frontal and lateral views of the chest. INDICATION: [id number] SHORTNESS OF BREATH COMPARISON: 01/29/2019 IMPRESSION: Lines and hardware: Stable. Heart and mediastinum: Stable. Lungs and pleura: Retrocardiac opacity corresponds to the large hiatal hernia identified on prior CT. Left basilar atelectasis. Small bilateral pleural effusions. No pneumothorax. Soft tissues and bones: No acute bony abnormality. Signed by: Vadim Saenz MD on 03/31/2020 3:57 PM Dictated By: VADIM SAENZ DO 9943 Transcribed By: SABRA on 03/31/20 6708 COPY TO: VOLODYMYR PETERSON MD SCR MAMM BILATERAL REINA CAD DIGITAL 2019-11-27 11:34:26 - SCR MAMM BILATERAL RENIA CAD DIGITALBILATERAL DIGITAL SCREENING MAMMOGRAM 3D/2D WITH CAD: 11/27/2019CLINICAL: Asymptomatic. Digital breast tomosynthesis was performed in addition to routine CC and MLO views. Current mammographic images were evaluated by either a Marfeel M-Vu or a [employer] ImageSanergycker CAD (computer aided detection system). Comparison is made to exams dated 11/12/2018 mammogram, mammogram, and 10/01/2016 mammogram - [facility]. There are scattered fibroglandular tissues in both breasts. No suspicious mass, architectural distortion, malignant type calcification, or lymph node abnormality detected. Breast architecture is stable compared to prior exams.IMPRESSION: NEGATIVEThere is no mammographic evidence of malignancy. Resume annual screening mammography in one year. Myla Cruz M.D. dm/penrad:11/27/2019 11:34:26 copy to: Shelbi Cerda MD, ph: [phone], fax: [phone] Technologist: Sydnee DUBOSE, [facility] FWletter sent: BIRADS 1-2 Normal Mammogram BI-RADS: 1 Negative US EXTREMITY SUN NON-VAS 2019-10-09 16:47:[address] [address] Patient Name: PARESH LINTON MR #: [id number] : 1935 Age/Sex: 83/F Req #: [id number] [facility] Physician: Ordered by: GUY BENITEZ MD Report #: [id number] Location: US Room/Bed: Procedure: [id number] US/US EXTREMITY SUN NON-VAS Exam Date: Exam [...] result is a direct measurement.========= COMPREHENSIVE METABOLIC [id number] 10:41:00* Test Item Value Reference Range Interpretation [...] LDL) mg/dL 100-129 - XR CHEST 2 [id number] 10:32:00 FAX: Sherron Daniels MD [phone] [place]: O St: PRE Name: PARESH CASE [facility] : 11/13/18 [birth year] Age/S: 83/F [address] [facility] Unit #: [id number] Loc: [place] [address] Phys: Sherron Amanda MD Acct: [id number] Dis Date: Status: PRE SDC PHONE #: [phone] Exam Date: 04/01/2019 0951 FAX #: [phone] Reason: PRE OP EXAMS: CPT CODE: [id number] XR CHEST 2 V 72456 TECHNIQUE - XR CHEST 2 V . [...] By: Lyndon Orig Print D/T: S: 04/01/2019 (5909) PAGE 1 Signed Report PROTHROMBIN [id number] 10:30:00* Test Item Value Reference Range Interpretation [...] Mechanical prosthetic heart valves (2.5-3.5) THROMBOPLASTIN TIME [id number] 10:30:00* Test Item Value Reference Range Interpretation Comments THROMBOPLASTIN TIME PARTIAL (test code = PTT) 31.0 seconds 25.0-36. 5 N CBC W/AUTO [id number] 10:16:00* Test Item Value Reference Range Interpretation [...] (test code = MDIFF) NO CHEST 2 UNDEE6203-31-05 17:08:00 [place] [address] Patient Name: PARESH LINTON MR #: [id number] : 1935 Age/Sex: 83/F Req #: [id number] Adm Physician: Ordered by: VOLODYMYR PETERSON MD Report #: [id number] Location: [facility] Room/Bed: Procedure: [id number] DX/C HEST 2 VIEWS Exam Date: 01/29/19 [...] mammographic images were evaluated by either a [employer] M-Vu or a [employer] ImageChecker CAD (computer aided detection system). Comparison is made to exams dated 11/10/2017 mammogram, 10/01/2016 mammogram, and 09/30/2015 mammogram - [facility]. There are scattered fibroglandular tissues in both breasts. No suspicious mass, architectural distortion, malignant type calcification, or lymph node abnormality detected. Breast architecture is stable compared to prior exams.IMPRESSION: NEGATIVEThere is no mammographic evidence of malignancy. Resume annual screening mammography in one year. Myla izquierdo/jeimy:11/14/2018 12:02:07 copy to: Shelbi Cerda MD, ph: [phone], fax: [phone] Technologist: Radha DUBOSE, [facility]letter sent: BIRADS 1-2 Normal Mammogram BI-RADS: 1 NegativeUrine [id number] 15:49:00* Test Item Value Reference Range Interpretation Comments Urine WBC (test code = 5821-4) NONE 0-5 [facility] [id number] 15:49:00* Test Item Value Reference Range Interpretation Comments Urine RBC (test code = 14282-6) NONE 0-5 [facility] Wxgiqgvy3258-83-03 15:49:00* Test Item Value Reference Range Interpretation Comments Urine Bacteria (test code = 17553-0) NONE NONE [facility] Epithelial Lbnwa3576-17-57 15:49:00 * Test Item Value Reference Range Interpretation Comments Urine Epithelial Cells (test code = 84884-9) RARE NONE [facility] Elfpy4386-29-52 15:43:00* Test Item Value Reference Range Interpretation Comments Urine Color (test code = 5778-6) YELLOW YELLOW [facility] Htdweny0712-32-69 15:43:00* Test Item Value Reference Range Interpretation Comments Urine Clarity (test code = 83649-1) CLEAR CLEAR [facility] Specific Szbkbln1708-91-99 15:43:00 * Test Item Value Reference Range Interpretation Comments Urine Specific [place] (test code = 5811-5) 1.010 1.010-1.02 5 [facility] fQ5467-41-93 15:43:00* Test Item Value Reference Range Interpretation Comments Urine pH (test code = 25474-9) 7 5-7 [facility] Leukocyte Yyrhcdlu5783-64-28 15:43:00* Test Item Value Reference Range Interpretation Comments Urine Leukocyte Esterase (test code = 5799-2) NEGATIVE NEGATIVE [facility] Vsddjct1383-64-65 15:43:00* Test Item Value Reference Range Interpretation Comments Urine Nitrite (test code = 75738-3) NEGATIVE NEGATIVE [facility] Jhurboh4566-70-96 15:43:00* Test Item Value Reference Range Interpretation Comments Urine Protein (test code = 5804-0) NEGATIVE NEGATIVE [facility] Glucose (UA)2018-07-31 15:43:00* Test Item Value Reference Range Interpretation Comments Urine Glucose (UA) (test code = 2349-9) NEGATIVE NEGATIVE [facility] Dptixel8022-65-16 15:43:00* Test Item Value Reference Range Interpretation Comments Urine Ketones (test code = 54445-3) NEGATIVE NEGATIVE [facility] Uwqdbkkyjzcc9983-93-58 15:43:00* Test Item Value Reference Range Interpretation Comments Urine Urobilinogen (test code = 52571-8) 0.2 0.2-1 [facility] Guiqejkmn7401-98-64 15:43:00* Test Item Value Reference Range Interpretation Comments Urine Bilirubin (test code = 1978-6) NEGATIVE NEGATIVE [facility] Ipwih5141-68-36 15:43:00* Test Item Value Reference Range Interpretation Comments Urine Blood (test code = 45474-5) NEGATIVE NEGATIVE [facility])2018-07-31 14:30:00 [address] [address] Patient Name: PARESH LINTON MR #: [id number] : 1935 Age/Sex: 82/F Req #: [id number] Adm Physician: Ordered by: COLL[employer]INEERING MANAGER Report #: [id number] Location: ER Room/Bed: Procedure: [id number] DX/CHEST SINGLE (PORTABLE) Exam Date: 07/31/18 Exam [...] 07/14 06/30 1433 COPY TO: [employer]INEERING MANAGER B-Type Natriuretic Peptide 2018-07-31 14:28:00* Test Item Value Reference Range Interpretation Comments B-Type Natriuretic Peptide (test code = 45972-0) 174.3 0-100 H [facility] Renaissance[facility] Kinase PX1299-52-59 13:57:00* Test Item Value Reference Range Interpretation Comments Creatine Kinase MB (test code = 53696-9) 0.30 0-5.0 [facility] Renaissance[facility]roponin L6686-13-37 13:57:00* Test Item Value Reference Range Interpretation Comments Troponin I (test code = EUJ9540) 0.076 0-0.300 [facility] Zmyhp3400-47-49 13:52:00* Test Item Value Reference Range Interpretation Comments Sodium Level (test code = 2951-2) 141 136-145 [facility]assium Btdhp1007-01-14 13:52:00* Test Item Value Reference Range Interpretation Comments Potassium Level (test code = 2823-3) 3.9 3.5-5.1 [facility] Renaissance[facility]loride Znqey7038-67-13 13:52:00* Test Item Value Reference Range Interpretation Comments Chloride Level (test code = 2075-0) 106 98-107 [facility] RenaissanceCarbon Dioxide Tvyrp8934-70-90 13:52:00* Test Item Value Reference Range Interpretation Comments Carbon Dioxide Level (test code = 2028-9) 21 22-29 L [facility] RenaissanceAnion Mvi7282-08-03 13:52:00* Test Item Value Reference Range Interpretation Comments Anion Gap (test code = 32264-9) 17.9 8-16 H [facility] RenaissanceBlood Urea Fjxnduwf9311-15-46 13:52:00* Test Item Value Reference Range Interpretation Comments Blood Urea Nitrogen (test code = 3094-0) 20 7-26 [facility] RenaissanceCreatinine2018-09-18 13:52:00* Test Item Value Reference Range Interpretation Comments Creatinine (test code = 2160-0) 0.94 0.57-1.11 [facility] Renaissance[facility]UN/Creatinine Bmheo0434-38-71 13:52:00* Test Item Value Reference Range Interpretation Comments BUN/Creatinine Ratio (test code = 3097-3) 21 6-25 [facility] RenaissanceEstimat Glomerular Filtration Rate 2018-07-31 13:52:00* Test Item Value Reference Range Interpretation Comments Estimat Glomerular Filtration Rate (test code = 223898067) 57 >60 L Ranges were taken from the National Kidney Disease Education Program and the [facility] Foundation literature.Reference ranges:60 or greater: Hjadtl65-77 ( for 3 consecutive months): Chronic kidney disease 15 or less: Kidney failureDoctors Hospital at RenaissanceGlucose Wubba8775-48-17 13:52:00* Test Item Value Reference Range Interpretation Comments Glucose Level (test code = LAG1680) 110 74-118 [facility] RenaissanceCalcium Wdrpd2563-01-41 13:52:00* Test Item Value Reference Range Interpretation Comments Calcium Level (test code = 43581-3) 9.7 8.4-10.2 [facility] RenaissanceMagnesium Yrwlp5420-49-58 13:52:00* Test Item Value Reference Range Interpretation Comments Magnesium Level (test code = 47139-9) 1.6 1.3-2.1 [facility] RenaissanceTotal Nfsmzstjn5977-62-93 13:52:00* Test Item Value Reference Range Interpretation Comments Total Bilirubin (test code = 1975-2) 0.5 0.2-1.2 [facility] RenaissanceAspartate Amino Transf (AST/SGOT) 2018-07-31 13:52:00* Test Item Value Reference Range Interpretation Comments Aspartate Amino Transf (AST/SGOT) (test code = Aspartate Amino Transf (AST/SGOT)) 37 5-34 H [facility] RenaissanceAlanine Aminotransferase (ALT/SGPT) 2018-07-31 13:52:00* Test Item Value Reference Range Interpretation Comments Alanine Aminotransferase (ALT/SGPT) (test code = 1742-6) 24 0-55 [facility] RenaissanceTotal Maorcpm5762-88-53 13:52:00* Test Item Value Reference Range Interpretation Comments Total Protein (test code = 2885-2) 7.4 6.5-8.1 [facility] RenaissanceAlbumin2018-09-18 13:52:00* Test Item Value Reference Range Interpretation Comments Albumin (test code = 1751-7) 4.0 3.5-5.0 [facility] RenaissanceGlobulin2018-09-18 13:52:00* Test Item Value Reference Range Interpretation Comments Globulin (test code = 15319-5) 3.4 2.3-3.5 [facility] RenaissanceAlbumin/Globulin Aalxg7748-03-63 13:52:00 * Test Item Value Reference Range Interpretation Comments Albumin/Globulin Ratio (test code = 1759-0) 1.2 0.8-2.0 [facility] RenaissanceAlkaline Cmkgdprsvrh8067-57-90 13:52:00* Test Item Value Reference Range Interpretation Comments Alkaline Phosphatase (test code = 6768-6) 48 40-150 [facility] RenaissanceCreatine Xobdmg8158-05-94 13:52:00* Test Item Value Reference Range Interpretation Comments Creatine Kinase (test code = 2157-6) 13 29-168 L [facility] RenaissanceAmylase Vyeuz0602-17-24 13:52:00* Test Item Value Reference Range Interpretation Comments Amylase Level (test code = 1798-8) 68 25-125 [facility] RenaissanceLipase2018-09-18 13:52:00* Test Item Value Reference Range Interpretation Comments Lipase (test code = 3040-3) 51 8-78 [facility] RenaissanceProthrombin Ngmh6614-01-92 13:41:00* Test Item Value Reference Range Interpretation Comments Prothrombin Time (test code = 5902-2) 13.3 11.9-14.5 [facility] RenaissanceProthromb Time International Ratio 2018-07-31 13:41:00* Test Item Value Reference Range Interpretation Comments Prothromb Time International Ratio (test code = 6301-6) 1.09 Oral Anticoagulant Therapy INR Values:1. Low Intensity Therapy 1.5 - 2.02 . Moderate Intensity Therapy 2.0 - 3.03. High Intensity Therapy(1) 2.5 - 3. 54. High Intensity Therapy(2) 3.0 - 4.05. Panic Value INR > 5.0 [facility] RenaissanceActivated Partial Thromboplast Time 2018-07-31 13:41:00* Test Item Value Reference Range Interpretation Comments Activated Partial Thromboplast Time (test code = 17548-6) 24.6 23.8-35.5 [facility] RenaissanceWhite Blood Xivcs5053-13-32 13:36:00* Test Item Value Reference Range Interpretation Comments White Blood Count (test code = 6690-2) 4.30 4.8-10.8 L [facility] RenaissanceRed Blood Iqjar6805-83-41 13:36:00* Test Item Value Reference Range Interpretation Comments Red Blood Count (test code = 789-8) 4.53 3.6-5.1 [facility] RenaissanceHemoglobin2018-09-18 13:36:00* Test Item Value Reference Range Interpretation Comments Hemoglobin (test code = 63188-6) 14.1 12.0-16.0 [facility] RenaissanceHematocrit2018-09-18 13:36:00* Test Item Value Reference Range Interpretation Comments Hematocrit (test code = 4544-3) 41.8 34.2-44.1 [facility] RenaissanceMean Corpuscular Hodwee2389-57-15 13:36:00* Test Item Value Reference Range Interpretation Comments Mean Corpuscular Volume (test code = 787-2) 92.3 81-99 [facility] RenaissanceMean Corpuscular Cckkoybcts4910-80-21 13:36:00* Test Item Value Reference Range Interpretation Comments Mean Corpuscular Hemoglobin (test code = 785-6) 31.1 28-32 [facility] RenaissanceMean Corpuscular Hemoglobin Concent 2018-07-31 13:36:00* Test Item Value Reference Range Interpretation Comments Mean Corpuscular Hemoglobin Concent (test code = 786-4) 33.7 31-35 [facility] RenaissanceRed Cell Distribution Dxduc6949-31-99 13:36:00* Test Item Value Reference Range Interpretation Comments Red Cell Distribution Width (test code = 70833-5) 13.6 11.7 -14.4 [facility] RenaissancePlatelet Odzko6035-38-20 13:36:00* Test Item Value Reference Range Interpretation Comments Platelet Count (test code = 777-3) 346 140-360 [facility] RenaissanceNeutrophils (%) (Auto)2018-07-31 13:36:00 * Test Item Value Reference Range Interpretation Comments Neutrophils (%) (Auto) (test code = 10519-0) 54.2 38.7-80.0 [facility] RenaissanceLymphocytes (%) (Auto)2018-07-31 13:36:00 * Test Item Value Reference Range Interpretation Comments Lymphocytes (%) (Auto) (test code = 736-9) 19.8 18.0-39.1 [facility] RenaissanceMonocytes (%) (Auto)2018-07-31 13:36:00* Test Item Value Reference Range Interpretation Comments Monocytes (%) (Auto) (test code = 5905-5) 23.5 4.4-11.3 H [facility] RenaissanceEosinophils (%) (Auto)2018-07-31 13:36:00 * Test Item Value Reference Range Interpretation Comments Eosinophils (%) (Auto) (test code = 713-8) 1.6 0.0-6.0 [facility] RenaissanceBasophils (%) (Auto)2018-07-31 13:36:00* Test Item Value Reference Range Interpretation Comments Basophils (%) (Auto) (test code = 706-2) 0.7 0.0-1.0 [facility] RenaissanceIM GRANULOCYTES %2018-07-31 13:36:00* Test Item Value Reference Range Interpretation Comments IM GRANULOCYTES % (test code = IM GRANULOCYTES %) 0.2 0.0- 1.0 [facility] RenaissanceNeutrophils # (Auto)2018-07-31 13:36:00* Test Item Value Reference Range Interpretation Comments Neutrophils # (Auto) (test code = 751-8) 2.3 2.1-6.9 [facility])2018-07-31 13:36:00* Test Item Value Reference Range Interpretation Comments Lymphocytes # (Auto) (test code = 93271-9) 0.9 1.0-3.2 L [facility] (Auto)2018-07-31 13:36:00* Test Item Value Reference Range Interpretation Comments Monocytes # (Auto) (test code = 742-7) 1.0 0.2-0.8 H [facility] (Auto)2018-07-31 13:36:00* Test Item Value Reference Range Interpretation Comments Eosinophils # (Auto) (test code = 711-2) 0.1 0.0-0.4 [facility] (Auto)2018-07-31 13:36:00* Test Item Value Reference Range Interpretation Comments Basophils # (Auto) (test code = 704-7) 0.0 0.0-0.1 [facility] Granulocyte (auto 2018-07-31 13:36:00* Test Item Value Reference Range Interpretation Comments Absolute Immature Granulocyte (auto (malik t code = Absolute Immature Granulocyte (auto) 0.01 0-0.1 [facility] [address] [address] Patient Name: PARESH LINTON MR #: [id number] : 1935 Age/Sex: 82/F Req #: [id number] Adm Physician: Ordered by: VOLODYMYR PETERSON MD Report #: [id number] Location: CT Room/Bed: Procedure: [id number] CT/CT CHEST WO Exam Date: 03/13 06/30 [...] and sagittal multiplanar reformations were obtained. COMPARISON: [facility], CT, CT CHEST WO, 08/15/2017, 12:42. INDICATIONS: [...] TO: VOLODYMYR PETERSON MD CT CHEST WO [facility] [address] [address] Patient Name: PARESH LINTON MR #: [id number] : 1935 Age/Sex: 81/F Req #: [id number] Adm Physician: Ordered by: VOLODYMYR PETERSON MD Report #: [id number] Location: CT Room/Bed: Procedure: [id number] CT/CT CHEST WO Exam Date: 01/27 Exam [...]
--- NOTE | 2020-07-31 10:45 | NUR ---
call placed to patients daughter Michelle, and updated on status and the need to transfer patient stat to [place] for higher level of care, informed that pulmonary doctor and statistics tutor here at bedside, and informed patient of transfer and patient verbalized understanding. I also informed daughter that patients respiratory status is unstable and there is a high chance patient may be intubated at bedside prior to transfer, patients daughter verbalized understanding and agrees with decision to intubate if needed.
[2020-07-31] MEDS ORDERED: VANCOMYCIN 750MG/NS 150ML IVPB 150 ML IV SCH (11:00)
[2020-07-31] MEDS ORDERED: MIDAZOLAM HCL 2 MG/2 ML VIAL IV STA (11:00)
[2020-07-31] MEDS ORDERED: NOREPINEPHRINE 8 MG/D5W 250 ML 250 ML ONE (11:17)
--- NOTE | 2020-07-31 11:20 | NUR ---
CM CALLED BY NURSE FOR EMERGENT TRANSFER TO [facility] FOR HIGHER LEVEL OF CARE FOR EKOS CATH DR CONTI AND DR SANDERS AT BEDSIDE PT ALERT AND ORIENTED IN RESP DISTRESS CONSENTED TO TRANSFER; CHOICE LETTER SIGNED AND ON CHART --MOT INITIATED AND PLACED IN PACKET AT DESK CM CALLED TRANSFER CENTER AT [facility] [phone]; SPOKE WITH FLORENCIA AND REQUESTED EMERGENT TRANSFER TO [facility] REC'D MOT PT TO GO TO ER BEFORE GOING TO HIP HOP ARTIST DR CONTI DID DOC TO DOC WITH ER PHYSICIAN COVID RESULTS PENDING FACE SHEET AND COVID FORM FAXED TO [phone] HOUSE SUP NOTIFIED TO FAX COMPLETED MOT TO [phone] NURSE GIVEN NUMBER TO CALL REPORT TO ER
[2020-07-31] MEDS ORDERED: FENTANYL 2000MCG/NS 250 250 ML ONE (11:30)
[2020-07-31] MEDS ORDERED: MIDAZOLAM HCL 2 MG/2 ML VIAL ONE ×2 (11:34→12:31)
--- NOTE | 2020-07-31 11:55 | Consultation ---
DATE OF CONSULTATION: 07/31/2020 REASON FOR CONSULTATION: Shortness of breath. CHIEF COMPLAINT: Shortness of breath. HISTORY OF PRESENT ILLNESS: This is an 84-year-old female with known history of CAD, status post CABG three-vessel October 2016, hypertension, hyperlipidemia, pulmonary fibrosis, asthma, chronic allergies, hiatal hernia, and GI bleed in March 2017. The patient presents to [facility] ER with complaints of shortness of breath. CT of the chest noted with large bilateral PEs. Cardiology was consulted 07/31/2020 secondary to the patient's worsening shortness of breath. Of note, the patient actually called our office yesterday with complaints of progressive shortness of breath for 2 weeks. The patient was advised to go to the ER. Of note, the patient is not very mobile and reports that she sits in her chair 4 hours on in and has not been very active given the COVID-19 pandemic. Currently, the patient is on heparin drip. She is tachypneic and having severe dyspnea. The patient denies any chest pains at this time. Denies any lower extremity edema. PAST MEDICAL HISTORY: CAD, status post CABG in 10/2016 three-vessel, hypertension, hyperlipidemia, anemia, pulmonary fibrosis, chronic allergies, former smoker, she quit in 1975, and hiatal hernia. PAST SURGICAL HISTORY: CAD status post CABG three-vessel, 11/02/[address] Belle, hysterectomy, and bunionectomy. FAMILY HISTORY: Mother at age 88, history of hypertension. Father at age of 42, apparently from an accident. SOCIAL HISTORY: She is . She is a retired nurse. She denies any alcohol use. Former smoker, quit in 1975. ALLERGIES: TO BACTRIM, KEFLEX, AUGMENTIN, AND LEVAQUIN. HOME MEDICATIONS: Simvastatin 40 mg daily, metoprolol 50 mg b.i.d., amlodipine 10 mg daily, Benicar 40/12.5 daily, clonidine 0.1 mg p.r.n., TriCor 145 mg daily, levothyroxine 50 mcg daily, and Protonix 40 mg daily. REVIEW OF SYSTEMS: GENERAL: Denies any weight changes. Positive for fatigue and weakness. Denies any fevers, chills, or night sweats. SKIN: No rashes or bruises. HEENT: Denies any nausea, vomiting, vision change, blurred vision, double vision, epistaxis, sore throat, or swollen neck. CARDIAC: Denies any chest pains. Positive for shortness of breath at rest. Denies any orthopnea, PND, or lower extremity edema. RESPIRATORY: Positive for shortness of breath at rest. Denies any wheezing, coughing, or hemoptysis. GI: Reports good appetite. Denies any nausea, vomiting, diarrhea, constipation, melena, tarry or bloody stools. URINARY: Positive for frequency. Denies any hematuria or dysuria. VASCULAR: Denies any lower extremity edema or claudication. MUSCULOSKELETAL: Positive for generalized joint pains and back pains. NEUROLOGIC: Denies any numbness, tingling, tremors, weakness, paralysis, fainting, blackouts, or seizures. HEMATOLOGY: Denies any bruising or bleeding. ENDOCRINE: Denies any heat or cold intolerance, polyuria, polydipsia, or polyphagia. PHYSICAL EXAMINATION: VITAL SIGNS: Height 62 inches, weight 169 pounds. temperature 98.1, pulse 112, respiratory rate 35-40, blood pressure 153/79, and pulse ox 94% on 5 L nasal cannula. GENERAL: Fighting for her breath, acutely ill, in sitting position, unable to finish 2 words. SKIN: No rashes or bruises noted. HEENT: Normocephalic. Pupils are equal and reactive. Extraocular movements are intact. Trachea midline. No JVD. No carotid bruit. HEART: Tachycardia, PMI about 5th, increase S2. Positive sternotomy scar. ABDOMEN: Soft, nontender, and nondistended. No organomegaly. MUSCULOSKELETAL: Good muscle strength throughout. No lower extremity edema noted. VASCULAR: +2 radial pulses bilaterally, +1 DP/PT pulses bilaterally. NEUROLOGIC: Cranial nerves 2 through 12 seem intact. LABORATORY DATA: White count 14, hemoglobin of 12, hematocrit 38, and platelets 345. Sodium 143, potassium 4.2, chloride 110, bicarb 18, BUN 32, creatinine 1.09, and glucose 105. TSH 2.2. D-dimer 2.42. PTT 19. CTs of chest showing large bilateral PE with pulmonary emboli in distal main right and left pulmonary arteries extending to every lobe. Chest x-ray showing sinus tach with nonspecific EKG ST changes. ASSESSMENT: 1. Bilateral large pulmonary embolisms, saddle. 2. Pulmonary fibrosis. 3. Coronary artery disease, status post coronary artery bypass grafting, 2016. 4. Hypertension. 5. Hyperlipidemia. 6. Hypothyroidism. PLAN: 1. The patient presents with 2 plus weeks of shortness of breath. The patient is very sedentary. On CT, the patient was noted with massive bilateral PEs, currently the patient is on heparin drip. 2. We will get echo to evaluate RV. 3. We will get a venous Doppler to evaluate for any clot burden. 4. Continue telemonitoring. 5. Patient is severe respiratory distress, fighting for her breathing, near exhaustion, pending respiratory arrest and decompensation Dr. Grossman is also at bed side, we reviewed patient condition, her CT chest Patient will be transferred STAT for EKOS. She will be intubated for safer transfer. Prognosis is guarded Patient attended at bed side and care for more than 100 min. of ICU time Thanks for excellent care and help of Dr. Grossman and intubation and central line Patient will be taken directly to head transfer clerk for Bilateral EKOS Rx Dictated by Loyd Garcia NP Paxton Amanda MD DC/LILLY /[id number] IRIS
--- NOTE | 2020-07-31 12:30 | Progress Note ---
DATE: SUBJECTIVE: The patient was seen by me and was short of breath on 4 L, but unable to talk in full sentences. Detailed discussion was carried out with Dr. Amanda, myself and Dr. Loyd Leon. The patient will need systemic thrombolytics versus EKOS catheter-directed thrombolysis. Detailed discussion was done with the patient and we agree the patient need to be transferred to [facility] for EKOS catheter, which is imperative right now EKOS catheter-directed thrombolysis. The patient was intubated as she was having impending respiratory failure. IV heparin will be continued. CT findings reviewed and case discussed in detail with Dr. Sherron Amanda as well, who will be doing the procedure. PHYSICAL EXAMINATION: VITAL SIGNS: Reviewed. The patient's temperature is 98.1, heart rate is between 110 to 120s and blood pressure is 153/79. CHEST: Clear. HEART: S1, S2 audible. Tachycardic. ABDOMEN: Soft. EXTREMITIES: No pedal edema. LABORATORY DATA: Reviewed. ASSESSMENT/PLAN: Acute pulmonary embolism with tachypnea, tachycardia, impending respiratory failure. The patient has been intubated. Agree with catheter-directed thrombolysis for this patient. This was explained in detail to the patient as well. The patient will be transferred to [place] and transfer risk was also discussed with the patient. Cavitary lesion on the right upper lobe is likely an infarct, but another things cannot be ruled out at later stage when she is stable. We will consider bronchoscopy. Continue the heparin infusion for now. Critical care time spent 50 minutes excluding procedures. MD LEONOR Waters/LILLY /[id number]
[2020-07-31] MEDS ORDERED: ETOMIDATE 2 MG/ML 10 ML INJ IV ONE (12:31)
[2020-07-31] MEDS ORDERED: SUCCINYLCHOLINE CHLORIDE 20 MG/ML 10ML VIAL ONE (12:31)
--- NOTE | 2020-07-31 12:55 | Operative Report ---
DATE OF PROCEDURE: SURGEON: Nia Grossman MD PREPROCEDURE DIAGNOSES: Acute hypoxic respiratory failure and acute pulmonary embolism. POSTPROCEDURE DIAGNOSES: Acute hypoxic respiratory failure and acute pulmonary embolism. PROCEDURE PERFORMED: Central line insertion. PHOTOGRAPHIC DOUBLE: None. ANESTHESIA: Local. PROCEDURE IN DETAIL: After standard aseptic precaution, real-time ultrasound was used with sterile sleeve to locate the right internal jugular vein. A 16 cm triple-lumen catheter was placed with Seldinger technique. Good blood flow was seen in all 3 ports. Postprocedure chest x-ray confirmed the placement of the catheter. COMPLICATIONS: None. MD LEONOR Waters/MODL /[id number]
--- NOTE | 2020-07-31 13:00 | Operative Report ---
DATE OF PROCEDURE: SURGEON: Nia Grossman MD PREPROCEDURE DIAGNOSIS: Acute hypoxic respiratory failure. POSTPROCEDURE DIAGNOSIS: Acute hypoxic respiratory failure. PROCEDURE PERFORMED: Endotracheal intubation. PROCEDURE IN DETAIL: After giving 40 mg of IV etomidate and 100 mg of succinylcholine, the patient was intubated in first attempt with 7.5 ET tube with GlideScope. Postprocedure chest x-ray confirmed the placement of the tube. COMPLICATIONS: None. MD LEONOR Waters/MODL /[id number]
--- NOTE | 2020-07-31 13:35 | Diagnostic Imaging Report ---
EXAMINATION: CHEST SINGLE (PORTABLE) INDICATION: Intubation, line placement COMPARISON: Chest CT 07/30/2020, chest radiograph 07/30/2020 FINDINGS: LINES/TUBES:Endotracheal tube terminates in the mid thoracic trachea. Right IJ intravenous catheter terminates in the SVC. EKG leads overlie the chest. LUNGS:The lung volumes are low. There is left basilar opacity silhouetting the left samira diaphragm. Unchanged right upper lung nodular opacity. PLEURA:Small left pleural effusion. No pneumothorax. MEDIASTINUM:The cardiomediastinal silhouette appears unchanged in size and shape. Cardiomediastinal silhouette is stably enlarged. Neck chest BONES/SOFT TISSUES:No acute osseous injury. Sternotomy wires in place. ABDOMEN:No free air under the diaphragm. IMPRESSION: Endotracheal tube and right IJ central venous catheter in good position. Low lung volumes. Left basilar patchy opacities, most likely subsegmental atelectasis. Unchanged right upper lung nodular opacity. Signed by: Clark Engle MD on 07/31/2020 1:31 PM
--- NOTE | 2020-07-31 23:27 | Discharge Summary ---
PRIMARY CARE PHYSICIAN: Rosa Wharton MD. CONSULTANTS: 1. Dr. Loyd Leon. 2. Dr. Paxton Amanda. The patient was transferred to higher level of care [facility] for massive pulmonary embolism. SUMMARY: The patient is an 84-year-old female admitted for basically increasing shortness of breath. Chest x-ray show possible TB cavitary lesion. However, the CT scan of the chest showed that the patient had massive pulmonary embolism and the patient did okay overnight, but then this morning she was improving with shortness of breath, required oxygen, but then later on she failed heparin treatment having increase in respiratory problem. The patient will need intervention. The patient was transferred to a higher level of care at [facility] for pulmonary artery clot management. The patient was transferred under the order and consultation with Dr. Nia Grossman on his rounds for Dr. Loyd Leon. I will continue to monitor the patient and follow up with the patient at the higher level care facility [facility]. The patient will be admitted to the ICU after she had her procedure. MD YEHUDA Hill/LILLY /[id number]
== END 2020-07-31 12:58 | disposition short-term general hospital (02) | DRG 208 ==
LOC: ER 13:48 → ERHOLD 15:39 → MED/SURG3 20:47 → IMCU 22:59
PROVIDERS: ADMIT Internal Medicine; ATTEND Internal Medicine
PROC: 02HV33Z Insertion of Infusion Device into Superior Vena Cava, Percutaneous Approach (ICD-10-PCS; principal; 2020-07-31)
PROC: 5A1935Z Respiratory Ventilation, Less than 24 Consecutive Hours (ICD-10-PCS; 2020-07-31)
PROC: 0BH17EZ Insertion of Endotracheal Airway into Trachea, Via Natural or Artificial Opening (ICD-10-PCS; 2020-07-31)
DX: I26.99 Other pulmonary embolism without acute cor pulmonale (principal); J96.01 Acute respiratory failure with hypoxia; J18.9 Pneumonia, unspecified organism; A15.0 Tuberculosis of lung; J84.10 Pulmonary fibrosis, unspecified; I10 Essential (primary) hypertension; J44.9 Chronic obstructive pulmonary disease, unspecified; E03.9 Hypothyroidism, unspecified; I25.10 Atherosclerotic heart disease of native coronary artery without angina pectoris; K21.9 Gastro-esophageal reflux disease without esophagitis; E78.5 Hyperlipidemia, unspecified; Z95.1 Presence of aortocoronary bypass graft; Z88.1 Allergy status to other antibiotic agents; Z88.2 Allergy status to sulfonamides; Z88.8 Allergy status to other drugs, medicaments and biological substances; Z80.6 Family history of leukemia; K44.9 Diaphragmatic hernia without obstruction or gangrene; Z87.891 Personal history of nicotine dependence; Z86.19 Personal history of other infectious and parasitic diseases; Z11.59 Encounter for screening for other viral diseases
CPT/HCPCS: 31500; 36415; 71045; 71260; 80048; 80053; 81001; 82550; 82553; 83880; 84443; 84484; 85025; 85379; 85610; 85730; 86021; 87040; 93005; 94002; 99284; J0330; J1644; J2250; J7030; Q9967; U0002

== ENCOUNTER → 2020-09-15 | Outpatient (CLI) | payer MEDICARE, OTHER ==
[~2020-09-15] MED LIST changes: +ALLEGRA ALLERG180 MG PO; +BENICAR20 MG PO; +BIOTIN2500 MCG PO; +CARAFATE1 GM; +CLONIDINE HCL0.1 MG PO; +MULTI-VITAMIN1 EACH; +PANTOPRAZOLE SO40 MG PO; +VITAMIN B-121000 MC4 PO; +VITAMIN D3 COM1 EACH PO; +XYZAL5 MG PO
== END ==
LOC: LAB 13:08
PROVIDERS: ATTEND Internal Medicine Pulmonary Disease
DX: A31.0 Pulmonary mycobacterial infection (principal)
CPT/HCPCS: 87116; 87206

== ENCOUNTER → 2020-10-02 | Outpatient (CLI) | payer MEDICARE, OTHER ==
[~2020-10-02] MED LIST changes: +IOPAMIDOL 370 MG/ML 200 ML INFUS..BTL INJ ONE; +SODIUM CHLORIDE 0.9% 50ML 50 ML ONE
[2020-10-02 15:18] LABS: BLOOD UREA NITROGEN 15 mg/dL (7-26); BUN/CREATININE RATIO 18 (6-25); CREATININE, SERUM 0.85 mg/dL (0.57-1.11); EST GLOMERULAR FILTRATION RATE > 60 ML/MIN (60-)
== END ==
LOC: CT 13:56
PROVIDERS: ATTEND Internal Medicine Pulmonary Disease
DX: I26.99 Other pulmonary embolism without acute cor pulmonale (principal)
CPT/HCPCS: 36415; 71260; 82565; 84520; Q9967

== ENCOUNTER → 2020-12-01 | Outpatient (CLI) | payer MEDICARE, OTHER ==
[2020-12-01 14:20] LABS: BLOOD UREA NITROGEN 28 mg/dL (7-26); BUN/CREATININE RATIO 32 (6-25); CREATININE, SERUM 0.87 mg/dL (0.57-1.11); EST GLOMERULAR FILTRATION RATE > 60 ML/MIN (60-)
== END ==
LOC: CT 13:38
PROVIDERS: ATTEND Internal Medicine Pulmonary Disease
DX: I26.99 Other pulmonary embolism without acute cor pulmonale (principal)
CPT/HCPCS: 36415; 71260; 82565; 84520; Q9967

== ENCOUNTER 2021-01-30 17:15 | Emergency (ER) | payer MEDICARE, OTHER ==
[~2021-01-30] VITALS: Ht 152.4 cm; Wt 76.2 kg
[~2021-01-30 17:15] MED LIST changes: -IOPAMIDOL 370 MG/ML 200 ML INFUS..BTL INJ ONE; -SODIUM CHLORIDE 0.9% 50ML 50 ML ONE
[2021-01-30] MEDS ORDERED: ACETAMINOPHEN500 MG PO (18:07)
[2021-01-30] MEDS ORDERED: LIDOCAINE HCL 2% LOCAL 20 ML VIAL INJ STA (18:09)
[2021-01-30] MEDS ORDERED: TETANUS/DIPHTHERIA TOX ADULT 0.5 ML SYR IM STA (18:09)
[2021-01-30] MEDS ORDERED: TETANUS/DIPHTHERIA TOX ADULT 0.5 ML SYR ONE (18:50)
== END 2021-01-30 18:55 | disposition home or self-care (01) ==
LOC: FSED 17:43
DX: S01.01XA Laceration without foreign body of scalp, initial encounter (principal); W01.0XXA Fall on same level from slipping, tripping and stumbling without subsequent striking against object, initial encounter; Y93.01 Activity, walking, marching and hiking; I10 Essential (primary) hypertension; E78.5 Hyperlipidemia, unspecified; K21.9 Gastro-esophageal reflux disease without esophagitis; I25.10 Atherosclerotic heart disease of native coronary artery without angina pectoris; Z99.81 Dependence on supplemental oxygen; Z95.1 Presence of aortocoronary bypass graft
CPT/HCPCS: 70450; 90471; 90714; 96372; 99284

== ENCOUNTER → 2021-02-02 | Outpatient (CLI) | payer MEDICARE, OTHER ==
[~2021-02-02] MED LIST changes: +ACETAMINOPHEN500 MG PO
== END ==
LOC: RAD 16:08
PROVIDERS: ATTEND Internal Medicine
DX: R07.81 Pleurodynia (principal)
CPT/HCPCS: 71101

== ENCOUNTER → 2021-02-17 | Outpatient (CLI) | payer MEDICARE, OTHER | LOC: CT 14:33 | PROVIDERS: ATTEND Internal Medicine Pulmonary Disease | DX: R05 Cough (principal); J84.112 Idiopathic pulmonary fibrosis; M47.896 Other spondylosis, lumbar region | CPT/HCPCS: 71250; 86039; 86431 ==

== ENCOUNTER → 2021-06-02 | Outpatient (CLI) | payer MEDICARE, OTHER ==
[~2021-06-02] MED LIST changes: +IOPAMIDOL 370 MG/ML 200 ML INFUS..BTL INJ ONE; +SODIUM CHLORIDE 0.9% 500ML 500 ML ONE; +SODIUM CHLORIDE 0.9% 50ML 50 ML ONE
== END ==
LOC: CT 09:46
PROVIDERS: ATTEND Internal Medicine Pulmonary Disease
DX: J84.10 Pulmonary fibrosis, unspecified (principal)
CPT/HCPCS: 36415; 71260; 82565; 96360; J7040; Q9967

== ENCOUNTER → 2022-01-10 | Outpatient (CLI) | payer MEDICARE, OTHER ==
[~2022-01-10] MED LIST changes: -IOPAMIDOL 370 MG/ML 200 ML INFUS..BTL INJ ONE; -SODIUM CHLORIDE 0.9% 500ML 500 ML ONE; -SODIUM CHLORIDE 0.9% 50ML 50 ML ONE
== END ==
LOC: CT 11:43
PROVIDERS: ATTEND Internal Medicine Pulmonary Disease
DX: J84.112 Idiopathic pulmonary fibrosis (principal)
CPT/HCPCS: 71250

== ENCOUNTER 2022-04-13 14:02 | Outpatient (RCR) | payer MEDICARE, OTHER | END 2022-05-12 | LOC: RESP 14:02 | PROVIDERS: ATTEND Internal Medicine Pulmonary Disease | DX: I10 Essential (primary) hypertension (principal); E03.9 Hypothyroidism, unspecified; I48.0 Paroxysmal atrial fibrillation; I25.10 Atherosclerotic heart disease of native coronary artery without angina pectoris; J44.9 Chronic obstructive pulmonary disease, unspecified; Z86.711 Personal history of pulmonary embolism | CPT/HCPCS: 94626 ×4; 94799; G0238 ×4 ==

== ENCOUNTER 2022-05-18 10:30 | Outpatient (RCR) | payer MEDICARE, OTHER | END 2022-06-12 | LOC: RESP 10:30 | PROVIDERS: ATTEND Internal Medicine Pulmonary Disease | DX: J44.9 Chronic obstructive pulmonary disease, unspecified (principal); J84.10 Pulmonary fibrosis, unspecified | CPT/HCPCS: 94626 ×6; G0238 ×6 ==

== ENCOUNTER 2022-06-15 15:58 | Outpatient (RCR) | payer MEDICARE, OTHER | END 2022-07-13 | LOC: RESP 15:58 | PROVIDERS: ATTEND Internal Medicine Pulmonary Disease | DX: J84.10 Pulmonary fibrosis, unspecified (principal) | CPT/HCPCS: 94626 ×3; G0238 ×3 ==

== ENCOUNTER 2022-07-20 14:00 | Outpatient (RCR) | payer MEDICARE, OTHER | END 2022-08-12 | LOC: RESP 14:00 | PROVIDERS: ATTEND Internal Medicine Pulmonary Disease | DX: J44.9 Chronic obstructive pulmonary disease, unspecified (principal) | CPT/HCPCS: 94626 ×5; G0238 ×5 ==

== ENCOUNTER 2022-08-17 15:24 | Outpatient (RCR) | payer MEDICARE, OTHER | END 2022-09-12 | LOC: RESP 15:24 | PROVIDERS: ATTEND Internal Medicine Pulmonary Disease | DX: J44.9 Chronic obstructive pulmonary disease, unspecified (principal) | CPT/HCPCS: 94626 ×4; G0238 ×4 ==

== ENCOUNTER 2022-09-15 13:38 | Outpatient (RCR) | payer MEDICARE, OTHER | END 2022-10-12 | LOC: RESP 13:38 | PROVIDERS: ATTEND Internal Medicine | DX: J84.10 Pulmonary fibrosis, unspecified (principal) | CPT/HCPCS: 94626 ×6; G0238 ×6 ==

== ENCOUNTER 2022-10-13 | Outpatient (RCR) | payer MEDICARE, OTHER | END 2022-11-12 | LOC: RESP | PROVIDERS: ATTEND Internal Medicine | DX: J84.10 Pulmonary fibrosis, unspecified (principal); J44.9 Chronic obstructive pulmonary disease, unspecified | CPT/HCPCS: 94626 ×5; G0238 ×5 ==

== ENCOUNTER 2022-12-08 13:00 | Outpatient (RCR) | payer MEDICARE, OTHER | END 2022-12-13 | LOC: PT 13:00 | PROVIDERS: ATTEND Specialist | DX: S39.012A Strain of muscle, fascia and tendon of lower back, initial encounter (principal); M47.816 Spondylosis without myelopathy or radiculopathy, lumbar region; M43.16 Spondylolisthesis, lumbar region ==

== ENCOUNTER 2022-12-16 14:00 | Outpatient (RCR) | payer MEDICARE, OTHER | END 2023-01-10 | LOC: PT 14:00 | PROVIDERS: ATTEND Specialist | DX: S39.012A Strain of muscle, fascia and tendon of lower back, initial encounter (principal); M47.816 Spondylosis without myelopathy or radiculopathy, lumbar region ==

== ENCOUNTER 2023-01-19 15:33 | Outpatient (RCR) | payer MEDICARE, OTHER | END 2023-02-10 | LOC: RESP 15:33 | PROVIDERS: ATTEND Internal Medicine Pulmonary Disease | DX: J84.10 Pulmonary fibrosis, unspecified (principal) | CPT/HCPCS: 94626 ×4; G0238 ×4 ==

== ENCOUNTER 2023-02-13 17:16 | Outpatient (RCR) | payer MEDICARE, OTHER | END 2023-03-12 | LOC: RESP 17:16 | PROVIDERS: ATTEND Internal Medicine Pulmonary Disease | DX: J84.10 Pulmonary fibrosis, unspecified (principal) | CPT/HCPCS: 94626 ×4; G0238 ×4 ==

== ENCOUNTER 2023-03-13 12:30 | Outpatient (RCR) | payer MEDICARE, OTHER | END 2023-04-12 | LOC: RESP 12:30 | PROVIDERS: ATTEND Internal Medicine Pulmonary Disease | DX: J84.10 Pulmonary fibrosis, unspecified (principal) | CPT/HCPCS: 94626 ×7; G0238 ×7 ==

== ENCOUNTER 2023-04-17 10:20 | Outpatient (RCR) | payer MEDICARE, OTHER | END 2023-05-12 | LOC: RESP 10:20 | PROVIDERS: ATTEND Internal Medicine | DX: J84.10 Pulmonary fibrosis, unspecified (principal) | CPT/HCPCS: 94626 ×2; G0238 ×2 ==

== ENCOUNTER 2024-02-13 12:35 | Outpatient (RCR) | payer MEDICARE, OTHER | END 2024-03-12 | LOC: RESP 12:35 | PROVIDERS: ATTEND Internal Medicine Pulmonary Disease | DX: J84.9 Interstitial pulmonary disease, unspecified (principal); I27.20 Pulmonary hypertension, unspecified; J44.9 Chronic obstructive pulmonary disease, unspecified; I10 Essential (primary) hypertension; M06.9 Rheumatoid arthritis, unspecified; E03.9 Hypothyroidism, unspecified; R05.9 Cough, unspecified; R06.2 Wheezing | CPT/HCPCS: 94626 ×5; G0238 ×5 ==

== ENCOUNTER 2024-04-15 13:25 | Outpatient (RCR) | payer MEDICARE, OTHER | END 2024-05-12 | LOC: RESP 13:25 | PROVIDERS: ATTEND Internal Medicine Pulmonary Disease | DX: J84.9 Interstitial pulmonary disease, unspecified (principal) | CPT/HCPCS: 94626 ×5; G0238 ×5 ==

== ENCOUNTER 2024-05-13 14:06 | Outpatient (RCR) | payer MEDICARE, OTHER | END 2024-06-12 | LOC: RESP 14:06 | PROVIDERS: ATTEND Internal Medicine Pulmonary Disease | DX: J84.9 Interstitial pulmonary disease, unspecified (principal) | CPT/HCPCS: 94626 ×2; G0238 ×2 ==

== ENCOUNTER 2024-07-11 14:00 | Outpatient (RCR) | payer MEDICARE, OTHER | END 2024-07-13 | LOC: RESP 14:00 | PROVIDERS: ATTEND Internal Medicine Pulmonary Disease | DX: J84.9 Interstitial pulmonary disease, unspecified (principal) | CPT/HCPCS: 94626 ×6; G0238 ×6 ==

== ENCOUNTER 2024-08-08 14:00 | Outpatient (RCR) | payer MEDICARE, OTHER | END 2024-08-12 | LOC: RESP 14:00 | PROVIDERS: ATTEND Internal Medicine Pulmonary Disease | DX: J84.9 Interstitial pulmonary disease, unspecified (principal); Z86.711 Personal history of pulmonary embolism; K44.9 Diaphragmatic hernia without obstruction or gangrene | CPT/HCPCS: 36415; 71250; 82565; 84520; 94626 ×5; G0238 ×5 ==

== ENCOUNTER 2024-08-19 14:00 | Outpatient (RCR) | payer MEDICARE, OTHER | END 2024-09-12 | LOC: RESP 14:00 | PROVIDERS: ATTEND Internal Medicine Pulmonary Disease | DX: J84.9 Interstitial pulmonary disease, unspecified (principal) | CPT/HCPCS: 94626 ×2; G0238 ×2 ==

== ENCOUNTER → 2024-09-12 | Outpatient (RCR) | payer MEDICARE, OTHER | LOC: PT 09-03 08:34 | PROVIDERS: ATTEND Physician Assistant | DX: S22.060D Wedge compression fracture of T7-T8 vertebra, subsequent encounter for fracture with routine healing (principal); M47.814 Spondylosis without myelopathy or radiculopathy, thoracic region; M54.50 Low back pain, unspecified; M62.81 Muscle weakness (generalized); R26.2 Difficulty in walking, not elsewhere classified ==

== ENCOUNTER 2024-10-08 12:40 | Emergency (ER) | payer MEDICARE, OTHER ==
[~2024-10-08] VITALS: Ht 149.9 cm; Wt 55.4 kg
[2024-10-08 12:45] VITALS: TEMP 97.7
[2024-10-08] MEDS ORDERED: LOSARTAN POTASS25 MG PO (13:18)
[2024-10-08] MEDS ORDERED: NORVASC2.5 MG PO (13:18)
[2024-10-08] MEDS ORDERED: LASIX20 MG PO (13:18)
[2024-10-08] MEDS ORDERED: ELIQUIS2.5 MG PO (13:18)
[2024-10-08] MEDS ORDERED: NAC600 MG (13:18)
[2024-10-08] MEDS ORDERED: REVATIO20 MG PO (13:18)
[2024-10-08] MEDS ORDERED: PLAQUENIL200 MG PO (13:18)
[2024-10-08] MEDS ORDERED: CLARITIN10 MG PO (13:18)
[2024-10-08] MEDS ORDERED: TRAZODONE HCL50 MG PO (13:18)
[2024-10-08] MEDS ORDERED: POTASSIUM CHLO20 ME1 PO (13:18)
[2024-10-08 14:01] VITALS: PULSE 60; RESP 16
[2024-10-08 14:15] VITALS: BP 141/60; PULSE 60; RESP 16; TEMP 98.4; O2SAT 99
== END 2024-10-08 14:20 | disposition home or self-care (01) ==
LOC: FSED 12:46
DX: R07.81 Pleurodynia (principal); S20.212A Contusion of left front wall of thorax, initial encounter; M81.0 Age-related osteoporosis without current pathological fracture; I10 Essential (primary) hypertension; I27.20 Pulmonary hypertension, unspecified; Z99.81 Dependence on supplemental oxygen; E78.5 Hyperlipidemia, unspecified; D68.9 Coagulation defect, unspecified; E03.9 Hypothyroidism, unspecified; Z95.1 Presence of aortocoronary bypass graft
CPT/HCPCS: 71101; 99284

== ENCOUNTER 2024-10-20 15:14 | Inpatient (IN) | payer MEDICARE, OTHER ==
[~2024-10-20] VITALS: Ht 149.9 cm; Wt 55.3 kg
[~2024-10-20 15:14] MED LIST changes: +CLARITIN10 MG PO; +ELIQUIS2.5 MG PO; +LASIX20 MG PO; +LOSARTAN POTASS25 MG PO; +NAC600 MG; +NORVASC2.5 MG PO; +PLAQUENIL200 MG PO; +POTASSIUM CHLO20 ME1 PO; +REVATIO20 MG PO; +TRAZODONE HCL50 MG PO
[2024-10-20] MEDS ORDERED: TRELEGY ELLIPT1 EACH (15:42)
[2024-10-20] MEDS ORDERED: PROBIOTIC & AC1 EACH PO (15:42)
[2024-10-20] MEDS ORDERED: PRESERVISION A1 EAC4 (15:42)
[2024-10-20] MEDS ORDERED: TYMLOS1.56 ML (15:42)
[2024-10-20] MEDS ORDERED: MONTELUKAST SOD10 MG PO (15:42)
[2024-10-20] MEDS ORDERED: VITAMIN D3125 MCG (15:42)
[2024-10-20] MEDS ORDERED: PLAQUENIL200 MG PO (15:42)
[2024-10-20] MEDS ORDERED: CALTRATE 600 W1 EACH PO (15:42)
[2024-10-20] MEDS ORDERED: DICYCLOMINE HCL10 MG PO (15:42)
[2024-10-20] MEDS ORDERED: IBGARD90 MG PO (15:42)
[2024-10-20] MEDS ORDERED: CLARITIN10 MG PO (15:42)
[2024-10-20] MEDS ORDERED: VENTOLIN HFA18 GM INH (15:42)
[2024-10-20] MEDS ORDERED: FERROUS SULFAT324 MG PO (15:42)
[2024-10-20] MEDS ORDERED: VANCOMYCIN 1.25GM/250 ML (PEG) 250 ML IV ONE (15:45)
[2024-10-20] MEDS ORDERED: SODIUM CHLORIDE FLUSH 10 ML SYR INJ PRN (16:15)
[2024-10-20] MEDS: Vancomycin IV 1 GM in SODIUM CHLORIDE 0.9% 250ML 250 ML IV ONE (17:34)
[2024-10-20 18:48] VITALS: TEMP 97.5
[2024-10-20 19:37] VITALS: PULSE 89; RESP 17
[2024-10-20 20:00] VITALS: BP 174/81; PULSE 75; RESP 20; TEMP 98.2; O2SAT 100
[2024-10-20 22:25] VITALS: BP 174/81; PULSE 75; RESP 20; TEMP 98.2; O2SAT 100
[2024-10-20 22:36] VITALS: BP 174/81; PULSE 75; RESP 20; TEMP 98.2; O2SAT 100
[2024-10-20 23:25] VITALS: PULSE 77; RESP 16; O2SAT 99
[2024-10-21] VITALS (9 sets, daily range): BP systolic 147–165; BP diastolic 55–68; PULSE 66–79; RESP 17–20; TEMP 97.5–98.6; O2SAT 96–100
[2024-10-21] MEDS ORDERED: ACETAMINOPHEN 325 MG TAB PO PRN
[2024-10-21] MEDS ORDERED: ONDANSETRON HCL INJ 2MG/ML 2ML 2 MG/ML VIAL IV PRN
[2024-10-21] MEDS ORDERED: HYDRALAZINE HCL 20 MG/ML VIAL IV PRN
[2024-10-21] MEDS ORDERED: ALBUTEROL/IPRATROPIUM 3 ML NEB NEB PRN
[2024-10-21] MEDS: PANTOPRAZOLE SOD 40 MG TABEC PO SCH (05:36)
[2024-10-21] MEDS: ACETAMINOPHEN 325 MG TAB PO PRN (05:36)
[2024-10-21] MEDS: LEVOTHYROXINE SODIUM 50 MCG TAB PO SCH (05:36)
[2024-10-21 07:09] LABS: BASOPHILS # (AUTO) 0.1 (0.0-0.1); BASOPHILS % 0.4 % (0.0-1.0); HEMATOCRIT 23.8 % (34.2-44.1); LYMPHOCYTES # (AUTO) 0.8 (1.0-3.2); LYMPHOCYTES % 5.2 % (18.0-39.1); MEAN CORPUSCULAR HGB CONC 31.5 g/dL (31-35); MEAN CORPUSCULAR VOLUME 98.3 fL (81-99); MONOCYTES # (AUTO) 4.5 (0.2-0.8); MONOCYTES % 30.1 % (4.4-11.3); NEUTROPHILS # (AUTO) 9.2 (2.1-6.9); NEUTROPHILS % 62.1 % (38.7-80.0); PLATELET COUNT 430 x10e3/uL (140-360); RED BLOOD COUNT 2.42 x10e6/uL (3.6-5.1); RED CELL DISTRIBUTION WIDTH 18.7 % (11.7-14.4)
[2024-10-21 07:10] LABS: HEMOGLOBIN 7.5 g/dL (12.0-16.0)
[2024-10-21 07:38] LABS: ANION GAP 14.5 mmol/L (8-16); CALCIUM 8.8 mg/dL (8.4-10.2); CREATININE, SERUM 1.35 mg/dL (0.57-1.11); POTASSIUM 3.5 mmol/L (3.5-5.1)
[2024-10-21 08:07] LABS: LYMPHOCYTES % (MANUAL) 6 % (19-48); MONOCYTES % (MANUAL) 24 % (3.4-9.0); NEUTROPHILS % (MANUAL) 70 % (40-74)
[2024-10-21 08:09] LABS: ANISOCYTOSIS MODERATE; PLATELET ESTIMATE ADEQUATE; PLATELET MORPHOLOGY COMMENT NORMAL; RBC MORPHOLOGY COMMENT ABNORMAL
[2024-10-21 08:10] LABS: ELLIPTOCYTE, RBC SLIGHT; HYPOCHROMASIA SLIGHT; OVALOCYTES FEW; SCHISTOCYTES FEW
[2024-10-21] MEDS: HYDROCORTISONE 1% CREAM 30 GM TUBE EXT SCH (09:00)
[2024-10-21] MEDS ORDERED: LORATADINE 10 MG TAB PO SCH (09:00)
[2024-10-21] MEDS: METOPROLOL TARTRATE 50 MG TAB PO SCH (09:50)
[2024-10-21] MEDS: APIXABAN 2.5 MG TABLET PO SCH (09:50)
[2024-10-21] MEDS: FENOFIBRATE 145 MG TAB PO SCH (09:50)
[2024-10-21] MEDS: LACTOBACILLUS ACIDOPHILUS CAPSULE PO SCH (09:50)
[2024-10-21] MEDS: FUROSEMIDE 20 MG TAB PO SCH (09:50)
[2024-10-21] MEDS: HYDROXYZINE HCL 10 MG TAB PO PRN (09:51)
[2024-10-21] MEDS: HYDROXYCHLOROQUINE SULFATE 200 MG TAB PO SCH (09:51)
[2024-10-21] MEDS: LORATADINE 10 MG TAB PO SCH (09:51)
[2024-10-21] MEDS: SILDENAFIL CITRATE 20 MG TAB PO SCH (09:51)
[2024-10-21] MEDS: DICYCLOMINE HCL 10 MG CAP PO SCH (09:51)
[2024-10-21 10:57] LABS: % IRON SATURATION 23 % (15-50); IRON 92 ug/dL (50-170); TOTAL IRON BINDING CAPACITY 398 ug/dL (261-478); TRANSFERRIN 284 mg/dL (180-382)
[2024-10-21 11:37] LABS: FOLATE 19.6 ng/mL (7.0-15.4)
[2024-10-21] MEDS: MONTELUKAST SODIUM 10 MG TAB PO SCH (20:26)
[2024-10-21] MEDS: TRAZODONE HCL 50 MG TAB PO SCH (20:26)
[2024-10-22] VITALS (9 sets, daily range): BP systolic 127–160; BP diastolic 49–67; PULSE 67–72; RESP 16–23; TEMP 97.3–97.9; O2SAT 96–100
[2024-10-22 05:53] LABS: BASOPHILS # (AUTO) 0.1 (0.0-0.1); BASOPHILS % 0.5 % (0.0-1.0); HEMATOCRIT 24.1 % (34.2-44.1); HEMOGLOBIN 7.5 g/dL (12.0-16.0); LYMPHOCYTES # (AUTO) 0.7 (1.0-3.2); LYMPHOCYTES % 6.8 % (18.0-39.1); MEAN CORPUSCULAR HEMOGLOBIN 30.4 pg (28-32); MEAN CORPUSCULAR HGB CONC 31.1 g/dL (31-35); MEAN CORPUSCULAR VOLUME 97.6 fL (81-99); MONOCYTES # (AUTO) 3.3 (0.2-0.8); MONOCYTES % 33.5 % (4.4-11.3); NEUTROPHILS # (AUTO) 5.6 (2.1-6.9); NEUTROPHILS % 57.1 % (38.7-80.0); PLATELET COUNT 428 x10e3/uL (140-360); RED BLOOD COUNT 2.47 x10e6/uL (3.6-5.1); RED CELL DISTRIBUTION WIDTH 18.8 % (11.7-14.4); WHITE BLOOD COUNT 9.75 x10e3/uL (4.8-10.8)
[2024-10-22 10:03] LABS: LYMPHOCYTES % (MANUAL) 10 % (19-48); MONOCYTES % (MANUAL) 19 % (3.4-9.0); NEUTROPHILS % (MANUAL) 71 % (40-74)
[2024-10-22 10:04] LABS: ANISOCYTOSIS SLIGHT; HYPOCHROMASIA SLIGHT; PLATELET ESTIMATE ADEQUATE; PLATELET MORPHOLOGY COMMENT NORMAL
[2024-10-22 10:05] LABS: POIKILOCYTOSIS SLIGHT
[2024-10-22] MEDS: CLINDAMYCIN 600MG / 50ML 50 ML IV SCH (13:54)
[2024-10-23] VITALS (10 sets, daily range): BP systolic 132–153; BP diastolic 51–62; PULSE 60–73; RESP 16–20; TEMP 97.5–98.3; O2SAT 96–100
[2024-10-23 08:25] LABS: BASOPHILS % 0.3 % (0.0-1.0); HEMATOCRIT 23.8 % (34.2-44.1); HEMOGLOBIN 7.2 g/dL (12.0-16.0); LYMPHOCYTES # (AUTO) 0.7 (1.0-3.2); MEAN CORPUSCULAR HEMOGLOBIN 30.1 pg (28-32); MEAN CORPUSCULAR HGB CONC 30.3 g/dL (31-35); MEAN CORPUSCULAR VOLUME 99.6 fL (81-99); MONOCYTES # (AUTO) 2.5 (0.2-0.8); NEUTROPHILS # (AUTO) 4.4 (2.1-6.9); NEUTROPHILS % 56.9 % (38.7-80.0); PLATELET COUNT 407 x10e3/uL (140-360); RED BLOOD COUNT 2.39 x10e6/uL (3.6-5.1); RED CELL DISTRIBUTION WIDTH 18.6 % (11.7-14.4); WHITE BLOOD COUNT 7.77 x10e3/uL (4.8-10.8)
[2024-10-23 08:43] LABS: ANION GAP 13.6 mmol/L (8-16); CALCIUM 8.3 mg/dL (8.4-10.2); CREATININE, SERUM 1.26 mg/dL (0.57-1.11); POTASSIUM 3.6 mmol/L (3.5-5.1)
[2024-10-23 08:47] LABS: HYPOCHROMASIA SLIGHT; LYMPHOCYTES % (MANUAL) 9 % (19-48); MONOCYTES % (MANUAL) 10 % (3.4-9.0); NEUTROPHILS % (MANUAL) 81 % (40-74); PLATELET ESTIMATE ADEQUATE; PLATELET MORPHOLOGY COMMENT NORMAL
[2024-10-23 08:48] LABS: ANISOCYTOSIS SLIGHT; ELLIPTOCYTE, RBC SLIGHT; OVALOCYTES FEW; POIKILOCYTOSIS SLIGHT; RBC MORPHOLOGY COMMENT ABNORMAL
[2024-10-23] MEDS: FUROSEMIDE INJ 10 MG/ML 4 ML VIAL IV ONE (10:03)
[2024-10-23] MEDS: POTASSIUM CHLORIDE 10MEQ EA PO ONE (10:05)
[2024-10-23] MEDS: HYDROXYZINE HCL 10 MG TAB PO SCH (11:56)
[2024-10-23] MEDS: VANCOMYCIN HCL 125 MG CAPSULE PO SCH (14:24)
[2024-10-24] VITALS (8 sets, daily range): BP systolic 124–144; BP diastolic 56–60; PULSE 62–81; RESP 17–19; TEMP 97.5–98.5; O2SAT 95–100
[2024-10-24 05:43] LABS: BASOPHILS % 0.3 % (0.0-1.0); HEMATOCRIT 23.4 % (34.2-44.1); HEMOGLOBIN 7.2 g/dL (12.0-16.0); LYMPHOCYTES # (AUTO) 0.9 (1.0-3.2); LYMPHOCYTES % 10.9 % (18.0-39.1); MEAN CORPUSCULAR HEMOGLOBIN 30.4 pg (28-32); MEAN CORPUSCULAR HGB CONC 30.8 g/dL (31-35); MEAN CORPUSCULAR VOLUME 98.7 fL (81-99); MONOCYTES # (AUTO) 2.5 (0.2-0.8); MONOCYTES % 31.5 % (4.4-11.3); NEUTROPHILS # (AUTO) 4.3 (2.1-6.9); NEUTROPHILS % 54.9 % (38.7-80.0); PLATELET COUNT 410 x10e3/uL (140-360); RED BLOOD COUNT 2.37 x10e6/uL (3.6-5.1); RED CELL DISTRIBUTION WIDTH 18.6 % (11.7-14.4)
[2024-10-24 08:59] LABS: BASOPHILS % (MANUAL) 1 % (0-1.5); LYMPHOCYTES % (MANUAL) 9 % (19-48); MONOCYTES % (MANUAL) 21 % (3.4-9.0); NEUTROPHILS % (MANUAL) 69 % (40-74)
[2024-10-24 09:00] LABS: ANISOCYTOSIS MODERATE; ELLIPTOCYTE, RBC SLIGHT; OVALOCYTES FEW; PLATELET ESTIMATE ADEQUATE; PLATELET MORPHOLOGY COMMENT FEW LARGE; RBC MORPHOLOGY COMMENT ABNORMAL; SCHISTOCYTES FEW
[2024-10-24 09:01] LABS: HYPOCHROMASIA SLIGHT
[2024-10-24] MEDS: ACETAMINOPHEN 325 MG TAB PO STA (12:02)
[2024-10-24] MEDS: SODIUM CHLORIDE 0.9% 250ML 250 ML ONE (12:03)
[2024-10-24] MEDS: SODIUM CHLORIDE 0.9% 250ML 250 ML IV ONE (12:03)
[2024-10-24] MEDS: DEXAMETHASONE SOD PHOS 10 MG/1 ML VIAL IV ONE (12:03)
[2024-10-24] MEDS: DEXAMETHASONE SOD PHOS 10 MG/1 ML VIAL ONE (12:07)
[2024-10-24] MEDS ORDERED: FAMCICLOVIR 500 MG TAB PO SCH (17:00)
[2024-10-24] MEDS: FUROSEMIDE INJ 10 MG/ML 2 ML VIAL IV PRN (18:10)
[2024-10-24] MEDS ORDERED: SODIUM CHLORIDE 0.9% 250ML 250 ML ONE (21:27)
[2024-10-25] VITALS: BP 146/66; PULSE 72; RESP 22; TEMP 98; O2SAT 100
[2024-10-25 04:00] VITALS: BP 155/76; PULSE 74; RESP 18; TEMP 97.3; O2SAT 100
[2024-10-25 06:14] LABS: BASOPHILS % 0.5 % (0.0-1.0); HEMATOCRIT 29.4 % (34.2-44.1); HEMOGLOBIN 9.6 g/dL (12.0-16.0); LYMPHOCYTES # (AUTO) 0.4 (1.0-3.2); MEAN CORPUSCULAR HGB CONC 32.7 g/dL (31-35); MEAN CORPUSCULAR VOLUME 91.9 fL (81-99); NEUTROPHILS # (AUTO) 6.4 (2.1-6.9); NEUTROPHILS % 78.2 % (38.7-80.0); PLATELET COUNT 389 x10e3/uL (140-360); WHITE BLOOD COUNT 8.17 x10e3/uL (4.8-10.8)
[2024-10-25 06:45] LABS: ANION GAP 13.6 mmol/L (8-16); CALCIUM 8.7 mg/dL (8.4-10.2); CREATININE, SERUM 1.34 mg/dL (0.57-1.11); POTASSIUM 3.6 mmol/L (3.5-5.1)
[2024-10-25 07:36] VITALS: PULSE 75; RESP 18; O2SAT 97
[2024-10-25 08:43] VITALS: BP 147/65; PULSE 84; RESP 18; TEMP 97.9; O2SAT 98
[2024-10-25 09:41] VITALS: BP 147/65; PULSE 84
== END 2024-10-25 11:20 | disposition home or self-care (01) | DRG 603 ==
LOC: FSED 15:19 → ERHOLD 16:16 → MED/SURG2 19:48
PROVIDERS: ADMIT Internal Medicine; ATTEND Internal Medicine
PROC: 30233N1 Transfusion of Nonautologous Red Blood Cells into Peripheral Vein, Percutaneous Approach (ICD-10-PCS; principal; 2024-10-24)
DX: L03.113 Cellulitis of right upper limb (principal); I13.0 Hypertensive heart and chronic kidney disease with heart failure and stage 1 through stage 4 chronic kidney disease, or unspecified chronic kidney disease; I50.32 Chronic diastolic (congestive) heart failure; I27.23 Pulmonary hypertension due to lung diseases and hypoxia; J84.10 Pulmonary fibrosis, unspecified; Z99.81 Dependence on supplemental oxygen; I25.10 Atherosclerotic heart disease of native coronary artery without angina pectoris; N18.9 Chronic kidney disease, unspecified; I35.0 Nonrheumatic aortic (valve) stenosis; I73.9 Peripheral vascular disease, unspecified; E78.2 Mixed hyperlipidemia; R53.81 Other malaise; D64.89 Other specified anemias; M81.0 Age-related osteoporosis without current pathological fracture; Z79.01 Long term (current) use of anticoagulants; Z79.890 Hormone replacement therapy; Z86.711 Personal history of pulmonary embolism; Z86.718 Personal history of other venous thrombosis and embolism; Z86.19 Personal history of other infectious and parasitic diseases; Z95.1 Presence of aortocoronary bypass graft; Z90.710 Acquired absence of both cervix and uterus; Z88.1 Allergy status to other antibiotic agents; Z88.2 Allergy status to sulfonamides; Z88.8 Allergy status to other drugs, medicaments and biological substances; Z82.49 Family history of ischemic heart disease and other diseases of the circulatory system; Z87.891 Personal history of nicotine dependence
CPT/HCPCS: 36415; 74176; 80048; 80053; 82044; 82607; 82746; 83540; 84466; 85025; 86850; 86900; 86920; 87040; 93306; 93925; 93971; 94799; 99252; 99283; J1100; J1940; J2405; J3410; J7050; P9016